=== PATIENT | male | born 1995 | race Caucasian/White ===

== ENCOUNTER → 2019-10-11 17:08 | Outpatient (CLI) | payer MEDICAID, SELFPAY | PROVIDERS: PCP Family Medicine; Visit Provider Nurse Practitioner | DX: Z03.818 Encounter for observation for suspected exposure to other biological agents ruled out (principal) | CPT/HCPCS: U0003 ==

== ENCOUNTER 2019-10-24 14:08 | Emergency (ER) | payer MEDICAID, SELFPAY ==
[2019-10-24] VITALS (8 sets, daily range): BP systolic 107–129; BP diastolic 63–87; PULSE 87–103; RESP 14–17; TEMP 36.8; O2SAT 92–100; BMI 28.8
--- NOTE | 2019-10-24 14:04 | ECG_ITS ---
APPROVED REPORT Exam: Resting ECG HR:101 bpm ECG Measurements Heart Rate 101 AXES ME 146 P 44 QRSd 96 QRS 24 QT 318 T 0 QTc 412 <Conclusion> Sinus tachycardia Minimal voltage criteria for LVH, may be normal variant Inferior infarct, age undetermined Abnormal ECG Electronically signed by : Kirt Serrano, 10/24/2019 17:03:47
--- NOTE | 2019-10-24 14:12 | XR_ITS ---
PROCEDURE: XR CHEST 2V Referring Doctor: Caleb Mensah Patient Age:24Y CLINICAL HISTORY: SOA dyspnea and the chest pain started 2 hours prior to arrival in ER. COMPARISON: GRECIA Angel from 09/15/2018 FINDINGS: PA and lateral chest performed the no prior chest films; only a previous left shoulder two thousand nineteen for comparison Lungs appear well expanded and clear but nothing definitely acute. The upper normal markings at the left infrahilar region of most likely reflecting slightly less than optimal inspiration a possible mild atelectasis but no convincing focal pneumonia. No pneumothorax but no pleural effusion. Heart oz and mediastinal structures appear satisfactory. Chest wall and T-spine unremarkable. No acute bony abnormalities. Normal pulmonary vascularity. The lungs are clear without infiltrates, suspicious nodules, or pleural effusions. IMPRESSION: No acute findings. Lungs clear with Nothing definitely acute Dictated by: Art Castro MD 10/24/2019 18:21 Art Castro MD in [place] 10/24/2019 18:21
--- NOTE | 2019-10-24 14:28 | HMH.EDGENADL ---
ED Disposition Clinical Impression: Atypical chest pain Disposition: Home, Self-Care Condition on Discharge: Good Instructions: DI for Atypical Chest Pain Additional Instructions: Additional instructions for CHEST PAIN: See your physician as soon as possible for further evaluation. Return immediately if worsening chest pain, vomiting, shortness of breath, fever, coughing of blood. Referrals: PCP,No [Non-Staff] - - Critical Care Critical Care Time: No Attestation: On 10/24/19, the high probability of a clinically significant, sudden or life threatening deterioration of the following system(s) required my full and direct attention, intervention and personal management. The time I documented below is in addition to time spent performing reported procedures but includes the following listed in this critical care notation. Medical Decision Making - Medical Records Medical records reviewed: Yes: I reviewed the patient's medical records. - Sumeet Inquiry Pt receiving controlled substance: No Vital Signs: 10/24/19 14:08 10/24/19 15:30 10/24/19 16:10 Temperature 98.2 F Temperature Source Oral Pulse Rate [Right] 103 H 100 H 91 H Respiratory Rate 17 16 16 Blood Pressure [Right Arm] 129/75 129/75 119/63 Blood Pressure Mean [Right Arm] 93 93 81 Blood Pressure Source [Right Arm] Automatic Cuff Automatic Cuff Blood Pressure Position [Right Arm] Sitting Sitting 02 Sat by Pulse Oximetry 100 100 99 Oxygen Delivery Method Room Air Room Air 10/24/19 16:46 10/24/19 17:03 10/24/19 17:30 Temperature Temperature Source Pulse Rate [Right] 87 91 H 98 H Respiratory Rate 16 16 14 Blood Pressure [Right Arm] 117/75 112/69 113/87 Blood Pressure Mean [Right Arm] 89 83 95 Blood Pressure Source [Right Arm] Automatic Cuff Blood Pressure Position [Right Arm] Sitting 02 Sat by Pulse Oximetry 100 98 92 L Oxygen Delivery Method Room Air Room Air Venturi Mask 10/24/19 18:07 Temperature Temperature Source Pulse Rate [Right] 87 Respiratory Rate 16 Blood Pressure [Right Arm] 107/63 L Blood Pressure Mean [Right Arm] 77 Blood Pressure Source [Right Arm] Automatic Cuff Blood Pressure Position [Right Arm] Sitting 02 Sat by Pulse Oximetry 98 Oxygen Delivery Method Room Air - Lab Data Lab results reviewed: Yes: I reviewed the patient's lab results. Lab Results 10/24/19 14:17: WBC 9.1, RBC 4.50 L, Hgb 14.3, Hct 39.8 L, MCV 88.3, MCH 31.8 H, MCHC 36.0 H, RDW 12.7, Plt Count 374, MPV 6.7 L, Neut % (Auto) 69.3, Lymph % (Auto) 24.0, [place] % (Auto) 4.7, Eos % (Auto) 1.3, Baso % (Auto) 0.8, Neut # (Auto) 6.3, Lymph # (Auto) 2.2, [place] # (Auto) 0.4, Eos # (Auto) 0.1, Baso # (Auto) 0.1 10/24/19 14:17: Sodium 134 L, Potassium 4.3, Chloride 96 L, Carbon Dioxide 30, Anion Gap 12.3, BUN 13, Creatinine 0.70, Estimated Creat Clear 239, Estimated GFR 141, Est GFR ( Amer) 171, Glucose 100, Calcium 9.7, Total Bilirubin 0.4, AST 48, ALT 63, Alkaline Phosphatase 115, Troponin I < 0.01, Total Protein 7.9, Albumin 4.6, Globulin 3.3 H, Albumin/Globulin Ratio 1.4 10/24/19 14:17: D-Dimer 0.35 10/24/19 17:40: Troponin I < 0.01 Result diagrams: 10/24/19 14:17 10/24/19 14:17 Orders (Tests/Meds): ED MEDICATIONS Discontinued Medications Generic Name Dose Route Start Last Admin Trade Name Freq PRN Reason Stop Dose Admin Ketorolac Tromethamine 30 mg 10/24/19 14:58 10/24/19 15:55 Toradol 30mg/Ml Vial IV 10/24/19 14:59 30 mg ONCE ONE Administration ORDERS Category Date Time Status Troponin I Q3H Lab 10/24/19 20:15 Ordered - ECG Data Tracing #1 EKG interpreted by Caleb Mensah MD: Rhythm: sinus Rate: Rock: normal Ectopy: none Conduction: normal ST Segment Changes: none T Wave Changes: none Q Waves: Inferior No evidence of acute ischemia or injury Minimal voltage criteria for LVH No prior EKGs available for comparison. - Reevaluation(s) Time: 18:28 Reevaluation #1: Patient s
[2019-10-24 14:32] LABS: Basophils # 0.1 K/mm3 (0-0.2); Basophils % 0.8 % (0.1-2.0); Eosinophils # 0.1 K/mm3 (0.0-0.4); Eosinophils % 1.3 % (0.1-12.0); Hematocrit 39.8 % (42.0-52.0); Hemoglobin 14.3 g/dL (14.1-18.0); Lymphocytes # 2.2 K/mm3 (0.7-4.5); Mean Corpuscular Hemoglobin 31.8 pg (27.0-31.2); Mean Corpuscular Volume 88.3 fl (80-94); Mean Platelet Volume 6.7 fl (7.4-10.4); Monocytes # 0.4 K/mm3 (0.1-1.0); Monocytes % 4.7 % (1.7-9.3); Neutrophils # 6.3 K/mm3 (1.8-7.8); Neutrophils % 69.3 % (37.0-80.0); Platelet Count 374 K/mm3 (142-424); Red Cell Distribution Width 12.7 % (11.5-17.5); White Blood Count 9.1 K/mm3 (4.8-10.8)
[2019-10-24 14:40] LABS: Alanine Aminotransferase 63 U/L (12-78); Albumin Level 4.6 g/dl (3.5-5.0); Albumin/Globulin Ratio 1.4 (1.1-1.8); Alkaline Phosphatase 115 U/L (38-126); Anion Gap 12.3 mEq/L (5-15); Aspartate Amino Transferase 48 U/L (17-59); Bilirubin,Total 0.4 mg/dl (0.2-1.3); Blood Urea Nitrogen 13 mg/dl (9-20); Calcium 9.7 mg/dl (8.4-10.2); Carbon Dioxide 30 mmol/L (22.0-30.0); Chloride 96 mmol/L (98-107); Creatinine Clearance Estimated 239 mL/min (50-200); Estimated Glomerular Filt Rate 141 ml/min (>60); GFR (African American) 171 ML/MIN (>60); Globulin 3.3 g/dL (1.3-3.2); Glucose 100 mg/dl (74-100); Potassium 4.3 mmoL/L (3.5-5.1); Sodium 134 mmol/L (136-145); Total Protein,Serum 7.9 g/dl (6.3-8.2)
[2019-10-24 14:52] LABS: Troponin I < 0.01 ng/ml (0.00-0.034)
[2019-10-24 15:14] LABS: D-Dimer 0.35 ug/mL (0.15-8.0)
[2019-10-24 18:08] LABS: Troponin I < 0.01 ng/ml (0.00-0.034)
== END 2019-10-24 18:50 | disposition home or self-care (01) ==
PROVIDERS: Emergency Provider Emergency Medicine; PCP Family Medicine
DX: R07.89 Other chest pain (principal); R42 Dizziness and giddiness; I10 Essential (primary) hypertension; F41.9 Anxiety disorder, unspecified; F90.9 Attention-deficit hyperactivity disorder, unspecified type
CPT/HCPCS: 71046; 80053; 84484; 85025; 85378; 93005; 99284

== ENCOUNTER 2019-10-25 13:33 | Emergency (ER) | payer MEDICAID, SELFPAY ==
[2019-10-25 13:41] VITALS: BP 121/73; PULSE 104; RESP 20; TEMP 37.1; O2SAT 96; BMI 28.8
--- NOTE | 2019-10-25 14:12 | HMH.EDUTC ---
[facility] [place] Clinical Impression: Acid reflux Qualifiers: Esophagitis presence: esophagitis presence not specified Qualified Code(s): K21.9 - Gastro-esophageal reflux disease without esophagitis Abdominal pain Qualifiers: Abdominal location: epigastric Qualified Code(s): R10.13 - Epigastric pain Disposition: Home, Self-Care Condition on Discharge: Good Instructions: GERD Diet Additional Instructions: Drink plenty of fluids. Take tylenol for pain or fever. Take the medications as directed. I put in a referral to a GI specialist (Dr. Best). Please call his office and make yourself an appointment to further evaluation. Follow up with your regular doctor. GO TO THE ER FOR ANY WORSENING SYMPTOMS If your diarrhea continues, please return a sample back to the lab with the order by tomorrow. Prescriptions: Sucralfate [Carafate 1gm Tab] 1 gm PO ACHS 30 Days #120 tab Transmission Status: Received by [facility] # Famotidine [Pepcid] 20 mg PO BID 30 Days #60 tab Transmission Status: Received by [facility] # Referrals: Kirt Bell MD [Primary Care Provider] - Krishan Best MD [Staff Physician] - Forms: Work/School Release Time of Disposition: 14:33 Medical Decision Making - Medical Records Medical records reviewed: No: I reviewed the patient's medical records. - Sumeet Inquiry Pt receiving controlled substance: No Vital Signs: 10/25/19 13:41 10/25/19 14:35 Temperature 98.7 F 98.7 F Temperature Source Oral Pulse Rate 104 H Pulse Rate [Right Brachial] 104 H Respiratory Rate 20 20 Blood Pressure 121/73 Blood Pressure [Left Arm] 121/73 Blood Pressure Mean [Left Arm] 89 Blood Pressure Source [Left Arm] Automatic Cuff Blood Pressure Position [Left Arm] Sitting 02 Sat by Pulse Oximetry 96 Oxygen Delivery Method Room Air Orders (Tests/Meds): ORDERS Category Date Time Status Covid-19 Nasal PCR Sendout Garry Stat Lab 10/25/19 14:35 Received [facility] [place] - General Stated complaint: stomach pain Time Seen by Provider: 10/25/19 13:45 Mode of Arrival: Ambulatory Source of Information: Patient Limitations: No Limitations Description of Symptoms (Recalled from Triage Doc. by RN): PATIENT C/O STOMACH ACHE, VOMITING, AND DIARRHEA X 1 WEEK. HE IS CONCERNED HE MAY HAVE ULCERS HEENT Symptoms (Recalled from RN notes): No Resp Symptoms (Recalled from RN notes): No Skin Symptoms (Recalled from RN notes): No MS Symptoms (Recalled from RN notes): No Functional Status (Recalled from RN notes): WNL - History of Present Illness Provider Complaint: He c/o frequent heart burn, epigastric pain and burning, nausea and diarrhea for the past 1 week. He denies any known exposure to COVID-19. - Related Data Home Medications Medication Instructions Recorded Confirmed Buspirone HCl 15 mg PO BID 08/19/17 01/09/19 OXcarbazepine [Oxcarbazepine] 600 mg PO DAILY 08/19/17 01/09/19 lisinopriL [Lisinopril 40mg Tablet] 40 mg PO DAILY 08/19/17 01/09/19 dextroamphetamine-amphetamine 5 mg 5 mg PO DAILY 01/09/19 01/09/19 tablet Previous Rx's Medication Instructions Recorded Azithromycin [Z-Kirit 250mg Tab*] 250 mg PO UD DOSE PK #6 tab 03/04/19 Fluticasone Propionate [Flonase 1 - 2 spr NS DAILY #1 bottle 03/04/19 50mcg nasal spray 16gm] methylPREDNISolone [Medrol 4mg 4 mg PO DIRECTED #21 tab 03/04/19 tab] Famotidine [Pepcid] 20 mg PO BID 30 Days #60 tab 10/25/19 Sucralfate [Carafate 1gm Tab] 1 gm PO ACHS 30 Days #120 tab 10/25/19 Allergies Allergy/AdvReac Type Severity Reaction Status Date / Time No Known Allergies Allergy Verified 01/09/19 11:45 - Worker's Comp Is this a Worker's Comp case?: No H History - Hepatitis A Screen Drug use history?: No High risk sexual behaviors?: No History of sexually transmitted infection?: No Currently employed?: No Childcare worker?: No Do you have indoor plumbing?: Yes Do you
[2019-10-25 14:35] VITALS: BP 121/73; PULSE 104; RESP 20; TEMP 37.1; O2SAT 96
[2019-10-27 14:57] LABS: Covid-19 Nasal PCR Sendout Lex NOT DETECTED
== END 2019-10-25 14:36 | disposition home or self-care (01) ==
PROVIDERS: Emergency Provider Nurse Practitioner Family; PCP Family Medicine
DX: K21.9 Gastro-esophageal reflux disease without esophagitis (principal); R10.13 Epigastric pain; Z20.828 Contact with and (suspected) exposure to other viral communicable diseases; I10 Essential (primary) hypertension; Z79.899 Other long term (current) drug therapy
CPT/HCPCS: 99201; U0004

== ENCOUNTER 2020-01-18 09:31 | Emergency (ER) | payer MEDICAID, SELFPAY ==
--- NOTE | 2020-01-18 09:38 | HMH.EDUTC ---
[facility] [place] Clinical Impression: Gastroenteritis Abdominal pain Qualifiers: Abdominal location: unspecified location Qualified Code(s): R10.9 - Unspecified abdominal pain Disposition: Home, Self-Care Condition on Discharge: Good Instructions: Viral Gastroenteritis, DI for Viral Gastroenteritis -- Adult Additional Instructions: Drink plenty of fluids. Take tylenol or ibuprofen for fever. Take the medications as directed. Follow up with your regular doctor. GO TO THE ER FOR ANY WORSENING SYMPTOMS Prescriptions: Ondansetron [Zofran 4mg ODT] 4 mg PO Q8HP PRN #12 tab.rapdis PRN Reason: Nausea Transmission Status: Received by [employer] #[id number] Referrals: Kirt Bell MD [Primary Care Provider] - Forms: Work/School Release Time of Disposition: 09:53 Medical Decision Making - Medical Records Medical records reviewed: No: I reviewed the patient's medical records. - Sumeet Inquiry Pt receiving controlled substance: No Vital Signs: 01/18/20 09:46 01/18/20 09:59 Temperature 98 F 98 F Temperature Source Oral Oral Pulse Rate 100 H Pulse Rate [Radial] 100 H Respiratory Rate 14 14 Blood Pressure 152/78 H Blood Pressure [Right Arm] 152/78 H Blood Pressure Mean [Right Arm] 102 Blood Pressure Source Automatic Cuff Blood Pressure Source [Right Arm] Automatic Cuff Blood Pressure Position Sitting Blood Pressure Position [Right Arm] Sitting 02 Sat by Pulse Oximetry 100 Oxygen Delivery Method Room Air Room Air [facility] [place] - General Stated complaint: stomach pains Time Seen by Provider: 01/18/20 09:38 - History of Present Illness Provider Complaint: He reports that he has been having periods of abdominal cramping for the past day. He has also had nausea. He has not vomited. He has had a normal appetite. He denies constipation or diarrhea. He has had normal bowel movements. His last b.m. was at around 0500 this am. - Related Data Home Medications Medication Instructions Recorded Confirmed Buspirone HCl 15 mg PO BID 08/19/17 01/09/19 OXcarbazepine [Oxcarbazepine] 600 mg PO DAILY 08/19/17 01/09/19 lisinopriL [Lisinopril 40mg Tablet] 40 mg PO DAILY 08/19/17 01/09/19 dextroamphetamine-amphetamine 5 mg 5 mg PO DAILY 01/09/19 01/09/19 tablet Previous Rx's Medication Instructions Recorded Azithromycin [Z-Kirit 250mg Tab*] 250 mg PO UD DOSE PK #6 tab 03/04/19 Fluticasone Propionate [Flonase 1 - 2 spr NS DAILY #1 bottle 03/04/19 50mcg nasal spray 16gm] methylPREDNISolone [Medrol 4mg 4 mg PO DIRECTED #21 tab 03/04/19 tab] Famotidine [Pepcid] 20 mg PO BID 30 Days #60 tab 10/25/19 Sucralfate [Carafate 1gm Tab] 1 gm PO ACHS 30 Days #120 tab 10/25/19 Ondansetron [Zofran 4mg ODT] 4 mg PO Q8HP PRN #12 tab.rapdis 01/18/20 Allergies Allergy/AdvReac Type Severity Reaction Status Date / Time No Known Allergies Allergy Verified 01/09/19 11:45 [facility] History - Hepatitis A Screen Attestation statement:: This patient has been screened for Hepatitis A risk factors. I have reviewed the patient's past medical history: Yes Medical History: Reports:: Hypertension Denies:: Diabetes Mellitus Type 1, Diabetes Mellitus Type 2 Other Medical History: Reports: Other (ADHD) Other Surgeries: Yes: Sinus Surgery Amputation: No Fractures: No Comment: nasal surgery and arm pit sweat glad surgery - Social History Smoking Status: Never smoker Alcohol Intake: never Occupational Status: other ROS Obtained: Yes All systems reviewed & no additional complaints - Constitutional Constitutional: Reports system reviewed and no additional complaints, except as docu - Eyes Eyes: Reports system reviewed and no additional complaints, except as docu - ENT Ears, Nose, Mouth, and Throat: Reports system reviewed and no additional complaints, except as docu - Cardiovascular Cardiovascular: Reports system reviewed and no additional complaints, except as docu
[2020-01-18 09:46] VITALS: BP 152/78; PULSE 100; RESP 14; TEMP 36.6; O2SAT 100; BMI 30.2
[2020-01-18 09:59] VITALS: BP 152/78; PULSE 100; RESP 14; TEMP 36.6; O2SAT 100
== END 2020-01-18 10:00 | disposition home or self-care (01) ==
PROVIDERS: Emergency Provider Nurse Practitioner Family; PCP Family Medicine
DX: K52.9 Noninfective gastroenteritis and colitis, unspecified (principal); I10 Essential (primary) hypertension; Z79.899 Other long term (current) drug therapy
CPT/HCPCS: 99201

== ENCOUNTER 2020-10-11 14:14 | Emergency (ER) | payer SELFPAY ==
[2020-10-11 14:50] VITALS: BP 145/91; PULSE 112; RESP 20; TEMP 36.9; O2SAT 98; BMI 31.4
--- NOTE | 2020-10-11 15:00 | HMH.EDUTC ---
[facility] [place] Impression: Poison sameera dermatitis Disposition: Home, Self-Care Condition on Discharge: Good Instructions: Poison Sameera, Poison [place], Poison [place], DI for Poison Sameera Allergy, Methylprednisolone Additional Instructions: Over the counter Calamine lotion may help to dry the rash Over the counter Benadryl may help with itching associated with rash Oatmeal bathes may help to dry the rash Start oral Steriods tomorrow 10/12/20 Return if needed Straight to ER if any life threatening symptoms Prescriptions: methylPREDNISolone [Medrol 4mg tab] 4 mg PO DIRECTED #21 tab Transmission Status: Received by [employer] #[id number] Referrals: Kirt Bell MD [Primary Care Provider] - As needed Time of Disposition: 15:23 Medical Decision Making - Sumeet Inquiry Pt receiving controlled substance: No Sumeet was queried for this patient: No Vital Signs: 10/11/20 14:50 Temperature 98.4 F Temperature Source Oral Pulse Rate [Left] 112 H Respiratory Rate 20 Blood Pressure [Right Arm] 145/91 H Blood Pressure Mean [Right Arm] 109 02 Sat by Pulse Oximetry 98 Orders (Tests/Meds): ED MEDICATIONS Discontinued Medications Generic Name Dose Route Start Last Admin Trade Name Freq PRN Reason Stop Dose Admin Methylprednisolone Sodium Succinate 125 mg 10/11/20 15:02 10/11/20 15:22 Methylprednisolone Sod Succ 125mg Vial IM 10/11/20 15:03 125 mg ONCE ONE Administration Medical Decision Narrative: Patient states that he has taken Solu Medrol and Medrol dose pack in the past without reactions or complications [facility] [place] - General Stated complaint: poison sameera Time Seen by Provider: 10/11/20 15:00 Mode of Arrival: Ambulatory Source of Information: Patient Limitations: No Limitations Description of Symptoms (Recalled from Triage Doc. by RN): pt c/o of poison sameera on both legs and feet x1 week. HEENT Symptoms (Recalled from RN notes): No Resp Symptoms (Recalled from RN notes): No Skin Symptoms (Recalled from RN notes): Yes (poison sameera rash on bilateral legs/feet) MS Symptoms (Recalled from RN notes): No Functional Status (Recalled from RN notes): na - History of Present Illness Provider Complaint: Patient states that he has been trying to take care of poison sameera on bilateral lower legs and feet for about week State that now rash is spreading on his left arm and he was concerned it would get to his face States that when he gets it he has to come in and get steriod shot - Related Data Home Medications Medication Instructions Recorded Confirmed Buspirone HCl 15 mg PO BID 08/19/17 01/09/19 OXcarbazepine [Oxcarbazepine] 600 mg PO DAILY 08/19/17 01/09/19 lisinopriL [Lisinopril 40mg Tablet] 40 mg PO DAILY 08/19/17 01/09/19 dextroamphetamine-amphetamine 5 mg 5 mg PO DAILY 01/09/19 01/09/19 tablet Previous Rx's Medication Instructions Recorded Azithromycin [Z-Kirit 250mg Tab*] 250 mg PO UD DOSE PK #6 tab 03/04/19 Fluticasone Propionate [Flonase 1 - 2 spr NS DAILY #1 bottle 03/04/19 50mcg nasal spray 16gm] methylPREDNISolone [Medrol 4mg 4 mg PO DIRECTED #21 tab 03/04/19 tab] Famotidine [Pepcid] 20 mg PO BID 30 Days #60 tab 10/25/19 Sucralfate [Carafate 1gm Tab] 1 gm PO ACHS 30 Days #120 tab 10/25/19 Ondansetron [Zofran 4mg ODT] 4 mg PO Q8HP PRN #12 tab.rapdis 01/18/20 methylPREDNISolone [Medrol 4mg 4 mg PO DIRECTED #21 tab 10/11/20 tab] Allergies Allergy/AdvReac Type Severity Reaction Status Date / Time No Known Allergies Allergy Verified 01/09/19 11:45 - Worker's Comp Is this a Worker's Comp case?: No [facility] History - Hepatitis A Screen Drug use history?: No High risk sexual behaviors?: No History of sexually transmitted infection?: No Currently employed?: No Childcare worker?: No Do you have indoor plumbing?: Yes Do you have electricity?: Yes Attestation statement:: This patient has been screened for Hepatitis A risk factors.
[2020-10-11 15:33] VITALS: BP 139/86; PULSE 103; RESP 16; TEMP 36.6
== END 2020-10-11 15:33 | disposition home or self-care (01) ==
PROVIDERS: Emergency Provider Nurse Practitioner; PCP Family Medicine
DX: L23.7 Allergic contact dermatitis due to plants, except food (principal); I10 Essential (primary) hypertension
CPT/HCPCS: 96372; 99202; G0463

== ENCOUNTER 2020-10-12 06:07 | Emergency (ER) | payer SELFPAY ==
[2020-10-12 06:21] VITALS: BP 00/00; PULSE 0; RESP 0; TEMP -17.7; TEMP 0
== END 2020-10-12 06:21 | disposition left against medical advice (07) ==
PROVIDERS: Emergency Provider Emergency Medicine; PCP Family Medicine
DX: Z53.21 Procedure and treatment not carried out due to patient leaving prior to being seen by health care provider (principal)
CPT/HCPCS: 99211

== ENCOUNTER 2020-11-07 09:00 | Emergency (ER) | payer SELFPAY ==
[2020-11-07 09:12] VITALS: BP 145/97; PULSE 95; RESP 14; TEMP 36.6; O2SAT 100; BMI 32.1
--- NOTE | 2020-11-07 09:44 | HMH.EDUTC ---
[facility] [place] Clinical Impression: Viral syndrome, Gastroenteritis Disposition: Home, Self-Care Condition on Discharge: Good Instructions: Viral Gastroenteritis, DI for Viral Gastroenteritis -- Adult, DI for COVID-19 (Suspected or Confirmed ), Preventing the Spread of Coronavirus Discharge Instructions Additional Instructions: Drink plenty of fluids. Take tylenol or ibuprofen for pain or fever. Take the medications as directed. The zofran (ondesetron) is for nausea/vomiting. Follow up with your regular doctor. GO TO THE ER FOR ANY WORSENING SYMPTOMS Quarantine until you know the results of your covid-19 test. If it is positive, the health department should call you and give you further instructions about your length of Quarantine and other things. Notify your school or workplace of your results and follow their instructions regarding return to work/school. Prescriptions: Ondansetron [Zofran 4mg ODT] 4 mg PO DAILYP PRN #12 tab PRN Reason: Nausea Transmission Status: Received by [employer] #[id number] Referrals: Kirt Bell MD [Primary Care Provider] - Forms: Work/School Release Time of Disposition: 09:49 Medical Decision Making - Medical Records Medical records reviewed: No: I reviewed the patient's medical records. - Sumeet Inquiry Pt receiving controlled substance: No Vital Signs: 11/07/20 09:12 11/07/20 09:55 Temperature 98 F 98 F Temperature Source Oral Pulse Rate 95 H Pulse Rate [Left] 95 H Respiratory Rate 14 16 Blood Pressure 145/97 H Blood Pressure [Right Arm] 145/97 H Blood Pressure Mean [Right Arm] 113 02 Sat by Pulse Oximetry 100 - Lab Data Lab results reviewed: Yes: I reviewed the patient's lab results. Lab Results 11/07/20 09:27: Strep Scn Rapid [facility] Negative Orders (Tests/Meds): ORDERS Category Date Time Status Covid-19 Nasal PCR ([facility]) Routine Lab 11/07/20 09:40 Received Strep Screen Confirmation Stat Micro 11/07/20 09:27 Received [facility] [place] HPI - General Stated complaint: vomiting, stomach pains Time Seen by Provider: 11/07/20 09:15 Mode of Arrival: Ambulatory Source of Information: Patient Limitations: No Limitations Description of Symptoms (Recalled from Triage Doc. by RN): pt states he left work this am because he has been having N/V/D HEENT Symptoms (Recalled from RN notes): No Resp Symptoms (Recalled from RN notes): No Skin Symptoms (Recalled from RN notes): No MS Symptoms (Recalled from RN notes): No Functional Status (Recalled from RN notes): na - History of Present Illness Provider Complaint: He states that since around 4 hours ago, he has had nausea and vomiting and diarrhea. He has vomited X4, diarrhea X2. He denies any abdominal pain, but he has had some abdominal cramping with the diarrhea. He denies any blood in his stool or vomit. He denies any fever/chills. He denies a cough or congestion. He thinks that he has a stomach virus. He has not been vaccinated against covid-19. - Related Data Home Medications Medication Instructions Recorded Confirmed Buspirone HCl 15 mg PO BID 08/19/17 01/09/19 OXcarbazepine [Oxcarbazepine] 600 mg PO DAILY 08/19/17 01/09/19 lisinopriL [Lisinopril 40mg Tablet] 40 mg PO DAILY 08/19/17 01/09/19 dextroamphetamine-amphetamine 5 mg 5 mg PO DAILY 01/09/19 01/09/19 tablet Previous Rx's Medication Instructions Recorded Azithromycin [Z-Kirit 250mg Tab*] 250 mg PO UD DOSE PK #6 tab 03/04/19 Fluticasone Propionate [Flonase 1 - 2 spr NS DAILY #1 bottle 03/04/19 50mcg nasal spray 16gm] methylPREDNISolone [Medrol 4mg 4 mg PO DIRECTED #21 tab 03/04/19 tab] Famotidine [Pepcid] 20 mg PO BID 30 Days #60 tab 10/25/19 Sucralfate [Carafate 1gm Tab] 1 gm PO ACHS 30 Days #120 tab 10/25/19 Ondansetron [Zofran 4mg ODT] 4 mg PO Q8HP PRN #12 tab.rapdis 01/18/20 methylPREDNISolone [Medrol 4mg 4 mg PO DIRECTED #21 tab 10/11/20 tab] Ondansetron [Zofran 4mg ODT
[2020-11-07 09:52] LABS: UTC Strep Screen (Rapid) Negative (Negative)
[2020-11-07 09:55] VITALS: BP 145/97; PULSE 95; RESP 16; TEMP 36.6
== END 2020-11-07 09:56 | disposition home or self-care (01) ==
PROVIDERS: Emergency Provider Nurse Practitioner Family; PCP Family Medicine
DX: K52.9 Noninfective gastroenteritis and colitis, unspecified (principal); B34.9 Viral infection, unspecified; Z20.822 Contact with and (suspected) exposure to COVID-19
CPT/HCPCS: 87880; 99203; G0463; U0003

== ENCOUNTER → 2021-02-12 09:48 | Outpatient (CLI) | payer OTHER, SELFPAY | PROVIDERS: PCP Family Medicine; Visit Provider Nurse Practitioner | DX: U07.1 COVID-19 (principal) | CPT/HCPCS: C9803; U0003; U0005 ==

== ENCOUNTER 2021-03-27 17:24 | Emergency (ER) | payer BC, SELFPAY ==
[2021-03-27 18:00] VITALS: BP 140/91; PULSE 72; RESP 20; TEMP 36.8; O2SAT 98; BMI 30.5
--- NOTE | 2021-03-27 18:16 | HMH.EDUTC ---
[facility] [place] Clinical Impression: Viral syndrome Abdominal pain Qualifiers: Abdominal location: unspecified location Qualified Code(s): R10.9 - Unspecified abdominal pain Disposition: Home, Self-Care Condition on Discharge: Good Instructions: DI for Abdominal Pain-Adult Additional Instructions: Drink plenty of fluids. Take tylenol or ibuprofen for pain or fever. Take the medications as directed. Follow up with your regular doctor. GO TO THE ER FOR ANY WORSENING SYMPTOMS Prescriptions: Ondansetron [Zofran 4mg ODT] 4 mg PO Q8HP PRN #20 tab PRN Reason: Nausea Transmission Status: Pending to [email or web address] # Dicyclomine HCl [Bentyl 10mg capsule] 10 mg PO TIDP PRN #20 cap PRN Reason: Cramping Transmission Status: Pending to [email or web address] # Referrals: Kirt Bell MD [Primary Care Provider] - Forms: Work/School Release Time of Disposition: 19:07 Medical Decision Making - Medical Records Medical records reviewed: No: I reviewed the patient's medical records. - Sumeet Inquiry Pt receiving controlled substance: No Vital Signs: 03/27/21 18:00 03/27/21 18:56 Temperature 98.3 F 98.3 F Temperature Source Oral Pulse Rate 72 Pulse Rate [Left Brachial] 72 Respiratory Rate 20 20 Blood Pressure 140/91 H Blood Pressure [Left Arm] 140/91 H Blood Pressure Mean [Left Arm] 107 Blood Pressure Source [Left Arm] Automatic Cuff Blood Pressure Position [Left Arm] Sitting 02 Sat by Pulse Oximetry 98 Oxygen Delivery Method Room Air - Lab Data Lab Results 03/27/21 18:20: Urine Color Yellow, Urine Appearance Clear, Urine pH 6.0, Ur Specific [place] 1.030, Urine Protein Negative, Urine Glucose (UA) Negative, Urine Ketones Negative, Urine Blood Negative, Urine Nitrate Negative, Urine Bilirubin Negative, Urine Urobilinogen 0.2, Ur Leukocyte Esterase Negative Medical Decision Narrative: he refused transfer to the ER. He is aware of the risks of appendicitis. He states he will return if his symptoms worsen or continue. [facility] [place] - General Stated complaint: STOMACH ISSUES Time Seen by Provider: 03/27/21 18:17 Mode of Arrival: Ambulatory Source of Information: Patient Limitations: No Limitations Description of Symptoms (Recalled from Triage Doc. by RN): PATIENT C/O SHARP/SQUEEZING PAIN TO MID-ABDOMEN X 2 DAYS. STATES PAIN DOES NOT RADIATE ANYWHERE. DENIES VOMITING. HEENT Symptoms (Recalled from RN notes): No Resp Symptoms (Recalled from RN notes): No Skin Symptoms (Recalled from RN notes): No MS Symptoms (Recalled from RN notes): No Functional Status (Recalled from RN notes): WNL - History of Present Illness Provider Complaint: He states that he has been epigastric abdominal pain since yesterday. He has had diarrhea and nausea, but no vomiting. He denies any fever or chills. He denies any known covid exposure. - Related Data Home Medications Medication Instructions Recorded Confirmed Buspirone HCl 15 mg PO BID 08/19/17 12/26/20 OXcarbazepine [Oxcarbazepine] 600 mg PO DAILY 08/19/17 12/26/20 lisinopriL [Lisinopril 40mg Tablet] 40 mg PO DAILY 08/19/17 12/26/20 dextroamphetamine-amphetamine 5 mg 5 mg PO DAILY 01/09/19 12/26/20 tablet Previous Rx's Medication Instructions Recorded Fluticasone Propionate [Flonase 1 - 2 spr NS DAILY #1 bottle 03/04/19 50mcg nasal spray 16gm] Famotidine [Pepcid] 20 mg PO BID 30 Days #60 tab 10/25/19 Sucralfate [Carafate 1gm Tab] 1 gm PO ACHS 30 Days #120 tab 10/25/19 Dicyclomine HCl [Bentyl 10mg 10 mg PO TIDP PRN #20 cap 03/27/21 capsule] Ondansetron [Zofran 4mg ODT] 4 mg PO Q8HP PRN #20 tab 03/27/21 Allergies Allergy/AdvReac Type Severity Reaction Status Date / Time No Known Allergies Allergy Verified 12/26/20 17:57 - Worker's Comp Is this a Worker's Comp case?: No [facility] History - Hepatitis A Screen Drug use history?: No High risk sexual behaviors?: No History of s
[2021-03-27 18:43] LABS: Apearance,Urine Clear (Clear); Bilirubin,Urine Negative (Negative); Blood, Urine Negative (Negative); Color,Urine Yellow (Yellow); Glucose,Urine (UA) Negative (Negative); Ketones,Urine Negative (Negative); Protein,Urine Negative (Negative); UTC Leukocyte Esterase,Urine Negative (Negative); UTC Nitrate,Urine Negative (Negative); Urobilinogen,Urine 0.2 EU/dl (0.2)
[2021-03-27 18:56] VITALS: BP 140/91; PULSE 72; RESP 20; TEMP 36.8; O2SAT 98
== END 2021-03-27 19:12 | disposition home or self-care (01) ==
PROVIDERS: Emergency Provider Nurse Practitioner Family; PCP Family Medicine
DX: B34.9 Viral infection, unspecified (principal); R10.33 Periumbilical pain; I10 Essential (primary) hypertension; F41.9 Anxiety disorder, unspecified
CPT/HCPCS: 81003; 99202; G0463

== ENCOUNTER 2021-04-10 18:35 | Emergency (ER) | payer BC, SELFPAY ==
--- NOTE | 2021-04-10 19:24 | HMH.EDUTC ---
[facility] – [place] Disposition Clinical Impression: Influenza B Disposition: Home, Self-Care Condition on Discharge: Good Instructions: Influenza, DI for Influenza -- Adult, Oseltamivir Additional Instructions: Drink plenty of fluids. Take tylenol or ibuprofen for pain or fever. Take the medications as directed. Follow up with your regular doctor. GO TO THE ER FOR ANY WORSENING SYMPTOMS Quarantine until you know the results of your covid-19 test. Notify your school or workplace of your results and follow their instructions regarding return to work/school. Prescriptions: Brompheniramine/Pseudoephed/Dm [Bromfed Dm Cough Syrup] 5 ml PO Q6HP PRN #240 ml PRN Reason: Cough Transmission Status: Pending to [employer] # Ondansetron [Zofran 4mg ODT] 4 mg PO Q8HP PRN #20 tab PRN Reason: Nausea Transmission Status: Pending to [facility] # Oseltamivir Phosphate [Tamiflu 75mg Capsule] 75 mg PO BID #10 cap Transmission Status: Pending to [employer] # Azithromycin [Z-Kirit 250mg Tab*] 250 mg PO UD DOSE PK #6 tab Transmission Status: Pending to [employer] # Referrals: Kirt Bell MD [Primary Care Provider] - Forms: Work/School Release Time of Disposition: 19:45 Medical Decision Making - Medical Records Medical records reviewed: No: I reviewed the patient's medical records. - Sumeet Inquiry Pt receiving controlled substance: No - Lab Data Lab results reviewed: Yes: I reviewed the patient's lab results. Lab Results 04/10/21 19:22: Group A Strep Rapid Negative Orders (Tests/Meds): ORDERS Category Date Time Status Covid-19 Nasal PCR ([facility]) Routine Lab 04/10/21 19:27 Received Strep Screen Confirmation Stat Micro 04/10/21 19:22 Received [facility] [place] HPI - General Stated complaint: sore throat, cough, Time Seen by Provider: 04/10/21 19:24 - History of Present Illness Provider Complaint: He states that for the past 1 day he has felt bad. His symptoms worsened today. He is having sore throat, cough, chest congestion, fever, chills, and body aches. He has been vaccinated against covid-19. - Related Data Home Medications Medication Instructions Recorded Confirmed Buspirone HCl 15 mg PO BID 08/19/17 12/26/20 OXcarbazepine [Oxcarbazepine] 600 mg PO DAILY 08/19/17 12/26/20 lisinopriL [Lisinopril 40mg Tablet] 40 mg PO DAILY 08/19/17 12/26/20 dextroamphetamine-amphetamine 5 mg 5 mg PO DAILY 01/09/19 12/26/20 tablet Previous Rx's Medication Instructions Recorded Fluticasone Propionate [Flonase 1 - 2 spr NS DAILY #1 bottle 03/04/19 50mcg nasal spray 16gm] Famotidine [Pepcid] 20 mg PO BID 30 Days #60 tab 10/25/19 Sucralfate [Carafate 1gm Tab] 1 gm PO ACHS 30 Days #120 tab 10/25/19 Dicyclomine HCl [Bentyl 10mg 10 mg PO TIDP PRN #20 cap 03/27/21 capsule] Ondansetron [Zofran 4mg ODT] 4 mg PO Q8HP PRN #20 tab 03/27/21 Azithromycin [Z-Kirit 250mg Tab*] 250 mg PO UD DOSE PK #6 tab 04/10/21 Brompheniramine/Pseudoephed/Dm 5 ml PO Q6HP PRN #240 ml 04/10/21 [Bromfed Dm Cough Syrup] Ondansetron [Zofran 4mg ODT] 4 mg PO Q8HP PRN #20 tab 04/10/21 Oseltamivir Phosphate [Tamiflu 75 mg PO BID #10 cap 04/10/21 75mg Capsule] Allergies Allergy/AdvReac Type Severity Reaction Status Date / Time No Known Allergies Allergy Verified 12/26/20 17:57 [facility] History - Hepatitis A Screen Attestation statement:: This patient has been screened for Hepatitis A risk factors. I have reviewed the patient's past medical history: Yes Medical History: Reports:: Anxiety, Hypertension Denies:: Diabetes Mellitus Type 1, Diabetes Mellitus Type 2 Other Medical History: Reports: Other Other Surgeries: Yes: Sinus Surgery Amputation: No Fractures: No Comment: nasal surgery and arm pit sweat glad surgery - Social History Smoking Status: Never smoker Alcohol Intake: never Occupational Status: other - Psychiatric History Ps
[2021-04-10 19:38] LABS: Strep Scrn Group A (Rapid) Negative (Negative)
[2021-04-10 19:39] VITALS: BP 137/78; PULSE 107; RESP 19; TEMP 37.3; O2SAT 97; BMI 31.0
[2021-04-10 19:42] LABS: UTC Influenza A Antigen Negative (Negative); UTC Influenza B Antigen Positive (Negative)
[2021-04-10 20:04] VITALS: BP 137/78; PULSE 107; RESP 19; TEMP 37.3
== END 2021-04-10 20:06 | disposition home or self-care (01) ==
PROVIDERS: Emergency Provider Nurse Practitioner Family; PCP Family Medicine
DX: J10.1 Influenza due to other identified influenza virus with other respiratory manifestations (principal); F41.9 Anxiety disorder, unspecified
CPT/HCPCS: 87430; 87804; 99203; C9803; G0463; U0003; U0005

== ENCOUNTER 2021-04-16 21:30 | Emergency (ER) | payer BC, SELFPAY ==
[2021-04-16 21:31] VITALS: BP 155/94; PULSE 108; RESP 16; TEMP 37.2; O2SAT 98; BMI 30.8
--- NOTE | 2021-04-16 21:41 | ECG_ITS ---
APPROVED REPORT Exam: Resting ECG HR:103 bpm ECG Measurements Heart Rate 103 AXES CO 155 P 61 QRSd 89 QRS 34 QT 313 T 5 QTc 373 Conclusion SINUS TACHYCARDIA NONSPECIFIC T-WAVE ABNORMALITY ABNORMAL RHYTHM ECG UNCONFIRMED REPORT Electronically signed by : Kirt Serrano MD 04/18/2021 21:04:55
--- NOTE | 2021-04-16 21:45 | XR_ITS ---
PROCEDURE INFORMATION: Exam: XR Chest Exam date and time: 04/16/2021 9:45 PM Age: 26 years old Clinical indication: Other: Dizziness; Patient HX: Patient became dizzy 2 hours ago while at work. TECHNIQUE: Imaging protocol: XR of the chest. Views: 2 views. COMPARISON: CR XR CHEST 2V 10/24/2019 2:14 PM FINDINGS: Lungs: Unremarkable. No consolidation. Pleural spaces: No pleural effusion. No pneumothorax. Heart/Mediastinum: Normal heart size. Bones/joints: Unremarkable. IMPRESSION: No acute findings.
--- NOTE | 2021-04-16 21:46 | CT_ITS ---
PROCEDURE INFORMATION: Exam: CT Head Without Contrast Exam date and time: 04/16/2021 9:46 PM Age: 26 years old Clinical indication: Dizziness; Patient HX: Patient became dizzy 2 hours ago while at work. TECHNIQUE: Imaging protocol: Computed tomography of the head without contrast. Radiation optimization: All CT scans at this facility use at least one of these dose optimization techniques: automated exposure control; mA and/or kV adjustment per patient size (includes targeted exams where dose is matched to clinical indication); or iterative reconstruction. COMPARISON: No relevant prior studies available. FINDINGS: Brain: No loss of garcia-white differentiation or evidence of acute ischemia. No mass effect or midline shift. No intracranial hemorrhage. Cerebral ventricles: Within expected limits for age and brain volume status. No ventricular outflow obstruction. Paranasal sinuses: Visualized sinuses are unremarkable. No fluid levels. Mastoid air cells: Visualized mastoid air cells are well aerated. Bones/joints: No depressed or calvarial fracture. Soft tissues: Unremarkable. IMPRESSION: No acute intracranial abnormality.
[2021-04-16 22:01] LABS: Basophils # 0.3 K/mm3 (0-0.2); Basophils % 2.6 % (0.1-2.0); Eosinophils # 0.3 K/mm3 (0.0-0.4); Eosinophils % 3.3 % (0.1-12.0); Hematocrit 47.6 % (42.0-52.0); Hemoglobin 15.7 g/dL (14.1-18.0); Lymphocytes # 2.5 K/mm3 (0.7-4.5); Lymphocytes % 24.6 % (10-50); Mean Corpuscular HGB Conc 32.9 g/dL (31.8-35.4); Mean Corpuscular Hemoglobin 28.6 pg (27.0-31.2); Mean Corpuscular Volume 86.9 fl (80-94); Mean Platelet Volume 7.1 fl (7.4-10.4); Monocytes # 0.6 K/mm3 (0.1-1.0); Monocytes % 5.5 % (1.7-9.3); Neutrophils # 6.5 K/mm3 (1.8-7.8); Platelet Count 424 K/mm3 (142-424); Red Blood Count 5.48 M/mm3 (4.60-6.20); White Blood Count 10.1 K/mm3 (4.8-10.8)
[2021-04-16 22:07] LABS: Alanine Aminotransferase 41 U/L (12-78); Albumin Level 4.4 g/dl (3.5-5.0); Albumin/Globulin Ratio 1.6 (1.1-1.8); Alkaline Phosphatase 84 U/L (38-126); Anion Gap 10.9 mEq/L (5-15); Aspartate Amino Transferase 35 U/L (17-59); Bilirubin,Total 0.6 mg/dl (0.2-1.3); Blood Urea Nitrogen 12 mg/dl (9-20); Calcium 9.1 mg/dl (8.4-10.2); Carbon Dioxide 26 mmol/L (22.0-30.0); Chloride 107 mmol/L (98-107); Creatinine Clearance Estimated 251 mL/min (50-200); Estimated Glomerular Filt Rate 139 ml/min (>60); GFR (African American) 168 ML/MIN (>60); Globulin 2.8 g/dL (1.3-3.2); Glucose 96 mg/dl (74-100); Potassium 3.9 mmoL/L (3.5-5.1); Sodium 140 mmol/L (136-145); Total Protein,Serum 7.2 g/dl (6.3-8.2)
[2021-04-16 22:08] LABS: Amphetamine/Metha Screen,Urine Positive ng/ml (<1000)
[2021-04-16 22:09] LABS: Barbiturates Screen,Urine Negative ng/ml (<200); Benzodiazepines Screen,Urine Negative ng/ml (<200)
[2021-04-16 22:10] LABS: Cannabinoid Screen,Urine Negative ng/ml (<50); Cocaine Screen,Urine Negative ng/ml (<300)
--- NOTE | 2021-04-16 22:10 | HMH.EDDIZZ ---
ED Disposition Clinical Impression: Vertigo Disposition: Home, Self-Care Condition on Discharge: Good Instructions: Vertigo Additional Instructions: use meds and call pcp in am Referrals: Kirt Bell MD [Primary Care Provider] - - Critical Care Critical Care Time: No Attestation: On 04/16/21, the high probability of a clinically significant, sudden or life threatening deterioration of the following system(s) required my full and direct attention, intervention and personal management. The time I documented below is in addition to time spent performing reported procedures but includes the following listed in this critical care notation. Medical Decision Making - Medical Records Medical records reviewed: Yes: I reviewed the patient's medical records. - Sumeet Inquiry Pt receiving controlled substance: No Vital Signs: 04/16/21 21:31 Temperature 98.9 F Temperature Source Oral Pulse Rate [Right] 108 H Respiratory Rate 16 Blood Pressure [Right Arm] 155/94 H Blood Pressure Mean [Right Arm] 114 02 Sat by Pulse Oximetry 98 - Lab Data Lab results reviewed: Yes: I reviewed the patient's lab results. Lab Results 04/16/21 21:30: WBC 10.1, RBC 5.48, Hgb 15.7, Hct 47.6, MCV 86.9, MCH 28.6, MCHC 32.9, RDW 14.0, Plt Count 424, MPV 7.1 L, Neut % (Auto) 64.0, Lymph % (Auto) 24.6, [place] % (Auto) 5.5, Eos % (Auto) 3.3, Baso % (Auto) 2.6 H, Neut # (Auto) 6.5, Lymph # (Auto) 2.5, [place] # (Auto) 0.6, Eos # (Auto) 0.3, Baso # (Auto) 0.3 H 04/16/21 21:30: Sodium 140, Potassium 3.9, Chloride 107, Carbon Dioxide 26, Anion Gap 10.9, BUN 12, Creatinine 0.70, Estimated Creat Clear 251, Estimated GFR 139, Est GFR ( Amer) 168, Glucose 96, Calcium 9.1, Total Bilirubin 0.6, AST 35, ALT 41, Alkaline Phosphatase 84, Troponin I < 0.01, C-Reactive Protein 1.9, Total Protein 7.2, Albumin 4.4, Globulin 2.8, Albumin/Globulin Ratio 1.6 04/16/21 21:30: Urine Opiates Screen Negative, Urine Methadone Screen Negative, Ur Barbituates Screen Negative, Ur Phencyclidine Scrn Negative, Ur Amphetamines Screen Positive H, U Benzodiazepines Scrn Negative, Urine Cocaine Screen Negative, U Marijuana (THC) Screen Negative Result diagrams: 04/16/21 21:30 04/16/21 21:30 Orders (Tests/Meds): ED MEDICATIONS Generic Name Dose Route Start Last Admin Trade Name Freq PRN Reason Stop Dose Admin Sodium Chloride 1,000 mls @ 999 mls/hr 04/16/21 22:00 04/16/21 22:06 Sod Chlor 0.9% 1000ml Bag IV 04/16/21 23:00 999 mls/hr .Q1H1M NATALEE Administration ORDERS Category Date Time Status C-Reactive Protein Stat Lab 04/16/21 21:30 Results Complete Blood Count Auto Diff Stat Lab 04/16/21 21:30 Results Comprehensive Metabolic Panel Stat Lab 04/16/21 21:30 Results Erythrocyte Sedimentation Rate Stat Lab 04/16/21 21:30 Results Procalcitonin Stat Lab 04/16/21 21:30 Results Troponin I Q3H Lab 04/17/21 00:45 Ordered Troponin I Q3H Lab 04/17/21 03:45 Ordered Troponin I Stat Lab 04/16/21 21:30 Results - Radiology Data #1 Image(s): Chest Image Reviewed: Yes I have reviewed radiologist's interpretation Preliminary Findings: Normal/NAD - CT Data CT Scan: Head Time Received: 22:[address] Reviewed: Yes: I have viewed the radiologist's interpretation Preliminary Findings: Normal/NAD - ECG Data Tracing #1 Normal Sinus Rhythm: Yes Ischemic changes: non-specific ST-T wave changes Medical Decision Narrative: stable exam and labs and neg ct - nonspecific etiology Dizzy HPI - General Chief Complaint: Dizziness Stated Complaint: feels like bp going up and down, dizzy weak Time Seen by Provider: 04/16/21 21:45 Mode of Arrival: Ambulatory Source of Information: Patient, Medical Record Limitations: No Limitations Description of Symptoms (Recalled from ER Triage Doc. by RN): pt c/o QUINTANA, dizziness and feel like BP is high. - History of Present Illness HPI Narrative: has occipital quintana and feeling dizzy with labile bp but
[2021-04-16 22:11] LABS: Methadone Screen,Urine Negative ng/ml (<300)
[2021-04-16 22:12] LABS: Opiate Screen,Urine Negative ng/ml (<300); Phencyclidine Screen,Urine Negative ng/ml (<25)
[2021-04-16 22:13] LABS: C-Reactive Protein 1.9 mg/L (0-4)
[2021-04-16 22:23] LABS: Troponin I < 0.01 ng/ml (0.00-0.034)
[2021-04-16 22:36] VITALS: BP 133/81; PULSE 98; RESP 20; TEMP 36.8; O2SAT 98
[2021-04-16 22:38] LABS: Procalcitonin < 0.030 ng/mL (0.0-2.0)
[2021-04-16 22:58] LABS: Erythrocyte Sedimentation Rate 8 mm/hr (0-15)
== END 2021-04-16 22:38 | disposition home or self-care (01) ==
PROVIDERS: Emergency Provider Emergency Medicine; PCP Family Medicine
DX: R42 Dizziness and giddiness (principal); I10 Essential (primary) hypertension; F41.9 Anxiety disorder, unspecified
CPT/HCPCS: 70450; 71046; 80053; 80305; 84145; 84484; 85025; 85651; 86140; 93005; 96365; 99282

== ENCOUNTER 2021-05-05 09:49 | Emergency (ER) | payer BC, SELFPAY ==
[2021-05-05 10:05] VITALS: BP 129/76; PULSE 87; RESP 19; TEMP 36.7; O2SAT 98; BMI 20.9
--- NOTE | 2021-05-05 10:46 | HMH.EDUTC ---
[facility] – [place] Disposition Clinical Impression: Upper respiratory infection, viral Disposition: Home, Self-Care Condition on Discharge: Good Instructions: DI for Viral Upper Respiratory Infection -- Adult Additional Instructions: No sign of a bacterial infection. Likely viral. Viruses can take 7-14 days to run their course. Nasal saline and bulb syringe or nose Lula to remove nasal drainage to help with nasal congestion. Hard to eat, drink, sleep with nasal congestion so important to keep this cleaned out. Monitor temp. Tylenol or Motrin as needed for pain or fever Encourage fluids, water, Gatorade, Powerade, Pedialyte if infant/toddler/child Warm salt water gargles Warm fluids Sore throat lozenges Sleep elevated Humidifier/vaporizer Follow-up immediately for new or worsening symptoms or no noticeable improvement over the next 48-72 hours. Referrals: Kirt Bell MD [Primary Care Provider] - Time of Disposition: 10:58 Medical Decision Making - Sumeet Inquiry Pt receiving controlled substance: No Vital Signs: 05/05/21 10:05 Temperature 98.0 F Temperature Source Oral Pulse Rate [Right Brachial] 87 Respiratory Rate 19 Blood Pressure [Right Arm] 129/76 Blood Pressure Mean [Right Arm] 93 Blood Pressure Source [Right Arm] Automatic Cuff Blood Pressure Position [Right Arm] Sitting 02 Sat by Pulse Oximetry 98 Oxygen Delivery Method Room Air [facility] [place] HPI - General Chief complaint: Urgent Treatment Center Stated complaint: congestion Time Seen by Provider: 05/05/21 10:47 Mode of Arrival: Ambulatory Source of Information: Patient Limitations: No Limitations Description of Symptoms (Recalled from Triage Doc. by RN): PATIENT C/O CHEST CONGESTION SINCE THIS MORNING HEENT Symptoms (Recalled from RN notes): No Resp Symptoms (Recalled from RN notes): Yes Skin Symptoms (Recalled from RN notes): No MS Symptoms (Recalled from RN notes): No Functional Status (Recalled from RN notes): WNL - History of Present Illness Provider Complaint: 26 yr old male presents for nasal congestion that started this am, denies any other symptom - Related Data Home Medications Medication Instructions Recorded Confirmed Buspirone HCl 15 mg PO BID 08/19/17 12/26/20 OXcarbazepine [Oxcarbazepine] 600 mg PO DAILY 08/19/17 12/26/20 lisinopriL [Lisinopril 40mg Tablet] 40 mg PO DAILY 08/19/17 12/26/20 dextroamphetamine-amphetamine 5 mg 5 mg PO DAILY 01/09/19 12/26/20 tablet Previous Rx's Medication Instructions Recorded Fluticasone Propionate [Flonase 1 - 2 spr NS DAILY #1 bottle 03/04/19 50mcg nasal spray 16gm] Famotidine [Pepcid] 20 mg PO BID 30 Days #60 tab 10/25/19 Sucralfate [Carafate 1gm Tab] 1 gm PO ACHS 30 Days #120 tab 10/25/19 Dicyclomine HCl [Bentyl 10mg 10 mg PO TIDP PRN #20 cap 03/27/21 capsule] Ondansetron [Zofran 4mg ODT] 4 mg PO Q8HP PRN #20 tab 03/27/21 Azithromycin [Z-Kirit 250mg Tab*] 250 mg PO UD DOSE PK #6 tab 04/10/21 Brompheniramine/Pseudoephed/Dm 5 ml PO Q6HP PRN #240 ml 04/10/21 [Bromfed Dm Cough Syrup] Ondansetron [Zofran 4mg ODT] 4 mg PO Q8HP PRN #20 tab 04/10/21 Oseltamivir Phosphate [Tamiflu 75 mg PO BID #10 cap 04/10/21 75mg Capsule] Allergies Allergy/AdvReac Type Severity Reaction Status Date / Time No Known Allergies Allergy Verified 12/26/20 17:57 - Worker's Comp Is this a Worker's Comp case?: No [facility] [place] History - Hepatitis A Screen Drug use history?: No High risk sexual behaviors?: No History of sexually transmitted infection?: No Currently employed?: No Childcare worker?: No Do you have indoor plumbing?: Yes Do you have electricity?: Yes Attestation statement:: This patient has been screened for Hepatitis A risk factors. I have reviewed the patient's past medical history: Yes Medical History: Reports:: Anxiety, Hypertension Denies:: Diabetes Mellitus Type 1, Diabetes Mellitus Type 2 Other Medical History: Reports: Other Other Surgeries: Yes: Sinus Hernandez
[2021-05-05 10:55] VITALS: BP 129/76; PULSE 87; RESP 19; TEMP 36.7; O2SAT 98
[2021-05-05 10:58] LABS: UTC Influenza A Antigen Negative (Negative); UTC Influenza B Antigen Negative (Negative)
== END 2021-05-05 11:00 | disposition home or self-care (01) ==
PROVIDERS: Emergency Provider Nurse Practitioner Family; PCP Family Medicine
DX: J06.9 Acute upper respiratory infection, unspecified (principal); I10 Essential (primary) hypertension; F41.9 Anxiety disorder, unspecified; Z79.51 Long term (current) use of inhaled steroids; Z79.899 Other long term (current) drug therapy; Z82.49 Family history of ischemic heart disease and other diseases of the circulatory system; Z83.3 Family history of diabetes mellitus
CPT/HCPCS: 87804; 99282

== ENCOUNTER 2021-05-11 15:16 | Emergency (ER) | payer BC, SELFPAY ==
[2021-05-11 15:20] VITALS: BP 121/70; PULSE 111; RESP 20; TEMP 36.7; O2SAT 97; BMI 26.9
[2021-05-11 15:38] LABS: UTC Strep Screen (Rapid) Positive (Negative)
--- NOTE | 2021-05-11 15:54 | HMH.EDUTC ---
[facility] [place]ression: Strep throat Disposition: Home, Self-Care Condition on Discharge: Good Instructions: Strep Throat, DI for Strep Throat Additional Instructions: *Monitor Temp, Over the counter Motrin or Tylenol as directed/as needed Tylenol every 4 hours and Motrin every 6 hours (as long as your family doctor has told you that you can take it) for fever or pain. and straight to ER if unable to lower temp less than 101.0 after medication given *Warm salt water gargles may help to soothe the throat *Throat Lozenges *Warm fluids like tea with honey may help to soothe the throat *Sleep elevated *Humidifier/Vaporizer *If you did not take Penicillin shot or was unable to, start taking antibiotic immediately and make sure that you take it for the FULL length of time although you should start to feel better in 24-48 hours *change toothbrush and toothpaste 24-48 hours after starting to take antibiotics so you do not reinfect yourself Monitor Temp. Tylenol and/or Ibuprofen as needed. ER if fever is no less than 101 despite alternating Tylenol and Ibuprofen * Encourage fluids, water, Gatorade, powerade, pedialyte if infant/toddler/or child *Cold fluids, popsicles and ice cream may feel good on his throat Follow up IMMEDIATELY for new or worsening symptoms or no Noticeable improvement over the next 48-72 hours. 911 for difficulty breathing or swallowing Prescriptions: Amoxicillin [Amoxicillin 875MG Tab] 875 mg PO Q12H #20 tab Transmission Status: Pending to [facility] #[id number] Referrals: Anita Strickland APRN [Primary Care Provider] - As needed Forms: Work/School Release Time of Disposition: 15:57 Medical Decision Making - Sumeet Inquiry Pt receiving controlled substance: No Sumeet was queried for this patient: No Vital Signs: 05/11/21 15:20 Temperature 98.0 F Temperature Source Oral Pulse Rate [Right Brachial] 111 H Respiratory Rate 20 Blood Pressure [Right Arm] 121/70 Blood Pressure Mean [Right Arm] 87 Blood Pressure Source [Right Arm] Automatic Cuff Blood Pressure Position [Right Arm] Sitting 02 Sat by Pulse Oximetry 97 Oxygen Delivery Method Room Air - Lab Data Lab results reviewed: Yes: I reviewed the patient's lab results. Lab Results 05/11/21 15:29: Strep Scn Rapid Clinic Positive A [facility] [place] - General Stated complaint: sotre throat Time Seen by Provider: 05/11/21 15:54 Mode of Arrival: Ambulatory Source of Information: Patient Limitations: No Limitations Description of Symptoms (Recalled from Triage Doc. by RN): PATIENT C/O SORE THROAT THAT STARTED FRIDAY NIGHT HEENT Symptoms (Recalled from RN notes): Yes Resp Symptoms (Recalled from RN notes): No Skin Symptoms (Recalled from RN notes): No MS Symptoms (Recalled from RN notes): No Functional Status (Recalled from RN notes): WNL - History of Present Illness Provider Complaint: Patient states that he started having sore throat last night states that feels like he is swallowing razor blades States that today his throat was worse so he came in to get checked out - Related Data Home Medications Medication Instructions Recorded Confirmed Buspirone HCl 15 mg PO BID 08/19/17 12/26/20 OXcarbazepine [Oxcarbazepine] 600 mg PO DAILY 08/19/17 12/26/20 lisinopriL [Lisinopril 40mg Tablet] 40 mg PO DAILY 08/19/17 12/26/20 dextroamphetamine-amphetamine 5 mg 5 mg PO DAILY 01/09/19 12/26/20 tablet Previous Rx's Medication Instructions Recorded Fluticasone Propionate [Flonase 1 - 2 spr NS DAILY #1 bottle 03/04/19 50mcg nasal spray 16gm] Famotidine [Pepcid] 20 mg PO BID 30 Days #60 tab 10/25/19 Sucralfate [Carafate 1gm Tab] 1 gm PO ACHS 30 Days #120 tab 10/25/19 Dicyclomine HCl [Bentyl 10mg 10 mg PO TIDP PRN #20 cap 03/27/21 capsule] Ondansetron [Zofran 4mg ODT] 4 mg PO Q8HP PRN #20 tab 03/27/21 Azithromycin [Z-Kirit 250mg Tab*] 250 mg PO UD DOSE PK #6 tab 04/10/21 Brompheniramine/Pseudoephed/D
[2021-05-11 16:02] VITALS: BP 121/70; PULSE 111; RESP 20; TEMP 36.7; O2SAT 97
== END 2021-05-11 16:11 | disposition home or self-care (01) ==
PROVIDERS: Emergency Provider Nurse Practitioner; PCP Nurse Practitioner Family
DX: J02.0 Streptococcal pharyngitis (principal); I10 Essential (primary) hypertension
CPT/HCPCS: 87880; 99212; G0463

== ENCOUNTER 2021-05-13 17:34 | Emergency (ER) | payer BC, SELFPAY ==
[2021-05-13 17:35] VITALS: BP 165/78; PULSE 98; RESP 18; TEMP 36.8; O2SAT 98; BMI 30.8
--- NOTE | 2021-05-13 17:48 | ECG_ITS ---
APPROVED REPORT Exam: Resting ECG HR:96 bpm ECG Measurements Heart Rate 96 AXES [place] 136 P 36 QRSd 93 QRS 45 QT 330 T 44 QTc 384 Conclusion SINUS RHYTHM NORMAL ECG UNCONFIRMED REPORT Electronically signed by : Kirt Serrano MD 05/14/2021 13:41:45
--- NOTE | 2021-05-13 18:03 | PC.NURSE ---
pt in rest room
[2021-05-13 18:09] LABS: Microscopic, Urine URINE MICROSCOPIC (MICROSCOPIC)
[2021-05-13 18:11] LABS: Appearance,Urine CLEAR (Clear); Bilirubin,Urine Negative (Negative); Blood, Urine Negative (Negative); Color,Urine YELLOW (Yellow); Glucose,Urine (UA) Negative (Negative); Ketones,Urine Negative (Negative); Leukocyte Esterase,Urine Negative (Negative); Nitrate,Urine Negative (Negative); Protein,Urine Negative (Negative); Specific Gravity, Urine >= 1.030 (1.005-1.030); Urobilinogen,Urine 0.2 EU/dl (0.2)
[2021-05-13 18:20] LABS: Bacteria,Urine Trace /lpf; RBC,Urine Occasional #/hpf (0-3); Squamous Epithelial Cell,Urine Occasional #/hpf (0-5)
--- NOTE | 2021-05-13 18:39 | HMH.EDGENADL ---
ED Disposition Clinical Impression: Flank pain, Dizziness, Lightheadedness Disposition: Home, Self-Care Condition on Discharge: Good Instructions: Vertigo Prescriptions: Ondansetron [Zofran 4mg ODT] 4 mg PO Q6H PRN 3 Days #12 tab PRN Reason: Nausea Transmission Status: Pending to [id number] Referrals: Kirt Bell MD [Primary Care Provider] - - Critical Care Critical Care Time: No Attestation: On 05/13/21, the high probability of a clinically significant, sudden or life threatening deterioration of the following system(s) required my full and direct attention, intervention and personal management. The time I documented below is in addition to time spent performing reported procedures but includes the following listed in this critical care notation. Medical Decision Making - Sumeet Inquiry Pt receiving controlled substance: No Vital Signs: 05/13/21 17:35 Temperature 98.3 F Temperature Source Oral Pulse Rate [Right Radial] 98 H Respiratory Rate 18 Blood Pressure [Right Arm] 165/78 H Blood Pressure Mean [Right Arm] 107 Blood Pressure Source [Right Arm] Automatic Cuff Blood Pressure Position [Right Arm] Sitting 02 Sat by Pulse Oximetry 98 Oxygen Delivery Method Room Air - Lab Data Lab Results 05/13/21 18:05: Urine Color Yellow, Urine Appearance Clear, Urine pH 6.0, Ur Specific [place] >= 1.030, Urine Protein Negative, Urine Glucose (UA) Negative, Urine Ketones Negative, Urine Blood Negative, Urine Nitrate Negative, Urine Bilirubin Negative, Urine Urobilinogen 0.2, Ur Leukocyte Esterase Negative, Urine RBC Occasional, Urine WBC 3-5, Ur Squamous Epith Cells Occasional, Urine Bacteria Trace 05/13/21 18:30: WBC 8.2, RBC 5.06, Hgb 14.7, Hct 44.1, MCV 87.3, MCH 29.0, MCHC 33.3, RDW 14.0, Plt Count 316, MPV 7.4, Neut % (Auto) 82.2 H, Lymph % (Auto) 7.8 L, [place] % (Auto) 6.2, Eos % (Auto) 1.5, Baso % (Auto) 2.4 H, Neut # (Auto) 6.8, Lymph # (Auto) 0.6 L, [place] # (Auto) 0.5, Eos # (Auto) 0.1, Baso # (Auto) 0.2 05/13/21 18:30: Sodium 132 L, Potassium 4.4, Chloride 98, Carbon Dioxide 28, Anion Gap 10.4, BUN 11, Creatinine 0.80, Estimated Creat Clear 219, Estimated GFR 119, Est GFR ( Amer) 144, Glucose 97, Calcium 8.8, Total Bilirubin 0.6, AST 31, ALT 36, Alkaline Phosphatase 97, Total Protein 6.7, Albumin 4.2, Globulin 2.5, Albumin/Globulin Ratio 1.7 Result diagrams: 05/13/21 18:30 05/13/21 18:30 Orders (Tests/Meds): ED MEDICATIONS Generic Name Dose Route Start Last Admin Trade Name Freq PRN Reason Stop Dose Admin Lactated Ringer's 1,000 mls @ 999 mls/hr 05/13/21 18:00 05/13/21 18:07 Lactated Ringer's 1000 Ml Bag IV 05/13/21 19:00 999 mls/hr .Q1H1M NATALEE Administration Sodium Chloride 10 ml 05/13/21 17:48 Sodium Chloride 0.9% 10ml Flush Syringe IV 06/12/21 17:47 NEEDED PRN Maintain IV Site Discontinued Medications Generic Name Dose Route Start Last Admin Trade Name Freq PRN Reason Stop Dose Admin Ketorolac Tromethamine 15 mg 05/13/21 17:57 05/13/21 18:07 Ketorolac 30mg/Ml Vial IV 05/13/21 17:58 15 mg ONCE ONE Administration Meclizine HCl 25 mg 05/13/21 17:57 05/13/21 18:08 Meclizine 25mg Tablet PO 05/13/21 17:58 25 mg ONCE ONE Administration Ondansetron HCl 4 mg 05/13/21 17:48 05/13/21 18:08 Ondansetron 4mg/2ml Vial IV 05/13/21 17:49 4 mg ONCE ONE Administration Ondansetron HCl 4 mg 05/13/21 17:57 05/13/21 18:34 Ondansetron 4mg/2ml Vial IV 05/13/21 17:58 Not Given ONCE ONE Medical Decision Narrative: DDx includes but not limited to UTI, dehydration, electrolyte abnormality, arrhythmia, vertigo. HDS, NAD, well appearing, GCS 15. Afebrile. Less likely acute meningitis or encephalitis given GCS 15, normal neck ROM, no neck pain or rigidity, neuro exam as above. Labs including cbc, cmp, ua without acute and actionable findings. Given IVF bolus 1 liter lr, zofran, po meclizine, iv toradol here in ED, and sy
[2021-05-13 18:41] LABS: Basophils # 0.2 K/mm3 (0-0.2); Basophils % 2.4 % (0.1-2.0); Chloride 98 mmol/L (98-107); Eosinophils # 0.1 K/mm3 (0.0-0.4); Eosinophils % 1.5 % (0.1-12.0); Hematocrit 44.1 % (42.0-52.0); Hemoglobin 14.7 g/dL (14.1-18.0); Lymphocytes # 0.6 K/mm3 (0.7-4.5); Lymphocytes % 7.8 % (10-50); Mean Corpuscular HGB Conc 33.3 g/dL (31.8-35.4); Mean Corpuscular Volume 87.3 fl (80-94); Mean Platelet Volume 7.4 fl (7.4-10.4); Monocytes # 0.5 K/mm3 (0.1-1.0); Monocytes % 6.2 % (1.7-9.3); Neutrophils # 6.8 K/mm3 (1.8-7.8); Neutrophils % 82.2 % (37.0-80.0); Platelet Count 316 K/mm3 (142-424); Potassium 4.4 mmoL/L (3.5-5.1); Red Blood Count 5.06 M/mm3 (4.60-6.20); Sodium 132 mmol/L (136-145); White Blood Count 8.2 K/mm3 (4.8-10.8)
[2021-05-13 18:43] LABS: Blood Urea Nitrogen 11 mg/dl (9-20); Creatinine Clearance Estimated 219 mL/min (50-200); Estimated Glomerular Filt Rate 119 ml/min (>60); GFR (African American) 144 ML/MIN (>60)
[2021-05-13 18:44] LABS: Alanine Aminotransferase 36 U/L (12-78); Albumin Level 4.2 g/dl (3.5-5.0); Albumin/Globulin Ratio 1.7 (1.1-1.8); Alkaline Phosphatase 97 U/L (38-126); Anion Gap 10.4 mEq/L (5-15); Aspartate Amino Transferase 31 U/L (17-59); Bilirubin,Total 0.6 mg/dl (0.2-1.3); Calcium 8.8 mg/dl (8.4-10.2); Carbon Dioxide 28 mmol/L (22.0-30.0); Globulin 2.5 g/dL (1.3-3.2); Glucose 97 mg/dl (74-100); Total Protein,Serum 6.7 g/dl (6.3-8.2)
[2021-05-13 20:08] VITALS: BP 132/79; PULSE 82; RESP 18; TEMP 36.8; O2SAT 98
== END 2021-05-13 20:10 | disposition home or self-care (01) ==
PROVIDERS: Emergency Provider Student in an Organized Health Care Education/Training Program; PCP Family Medicine
DX: R42 Dizziness and giddiness (principal); R53.83 Other fatigue; R11.0 Nausea; I10 Essential (primary) hypertension; F41.9 Anxiety disorder, unspecified; Z79.899 Other long term (current) drug therapy
CPT/HCPCS: 80053; 81001; 85025; 93005; 96365; 96375; 99284; J2405

== ENCOUNTER 2021-05-25 14:11 | Emergency (ER) | payer BC, SELFPAY ==
[2021-05-25 14:15] VITALS: BP 140/80; PULSE 68; RESP 18; TEMP 36.8; O2SAT 99; BMI 31.0
--- NOTE | 2021-05-25 14:31 | HMH.EDUTC ---
[facility] [place] Clinical Impression: Dizziness Disposition: Home, Self-Care Condition on Discharge: Good Instructions: DI for Vertigo Additional Instructions: Drink plenty of fluids. Follow up with your regular doctor. GO TO THE ER FOR ANY WORSENING SYMPTOMS Go to the er for any more symptoms. You need to be evaluated by your primary care physician. We will give you a list of new ones that are taking new patients. Prescriptions: Ondansetron [Zofran 4mg ODT] 4 mg PO Q8HP PRN #20 tab PRN Reason: Nausea Transmission Status: Received by [id number] Referrals: Provider,Referral, [Primary Care Provider] - Forms: Work/School Release Time of Disposition: 15:35 Medical Decision Making - Medical Records Medical records reviewed: No: I reviewed the patient's medical records. - Sumeet Inquiry Pt receiving controlled substance: No Vital Signs: 05/25/21 14:15 05/25/21 15:10 05/25/21 15:26 Temperature 98.3 F 98.3 F Temperature Source Oral Pulse Rate 68 Pulse Rate [Orthostatic Lying Right Brachial] 89 Pulse Rate [Orthostatic Sitting Right Brachial] 106 H Pulse Rate [Orthostatic Standing Right Brachial] 104 H Pulse Rate [Right Brachial] 68 Respiratory Rate 18 18 Blood Pressure 140/80 Blood Pressure [Orthostatic Lying Right Arm] 116/66 Blood Pressure [Orthostatic Sitting Right Arm] 122/59 L Blood Pressure [Orthostatic Standing Right Arm] 101/68 L Blood Pressure [Right Arm] 140/80 Blood Pressure Mean [Right Arm] 100 Blood Pressure Source [Right Arm] Automatic Cuff Blood Pressure Position [Right Arm] Sitting 02 Sat by Pulse Oximetry 99 Oxygen Delivery Method Room Air [facility] [place] HPI - General Stated complaint: lightheaded, dizziness Time Seen by Provider: 05/25/21 14:32 - History of Present Illness Provider Complaint: He states that he had a period yesterday evening while he was at his job that he got dizzy. He states that he could not identify any triggering event. He ended up having to go home after he tried to make some medication for this and accidentilly took a phenergran that made him very drowsy. Today he feels better. He denies any other complaint. - Related Data Home Medications Medication Instructions Recorded Confirmed Buspirone HCl 15 mg PO BID 08/19/17 12/26/20 OXcarbazepine [Oxcarbazepine] 600 mg PO DAILY 08/19/17 12/26/20 lisinopriL [Lisinopril 40mg Tablet] 40 mg PO DAILY 08/19/17 12/26/20 dextroamphetamine-amphetamine 5 mg 5 mg PO DAILY 01/09/19 12/26/20 tablet Previous Rx's Medication Instructions Recorded Fluticasone Propionate [Flonase 1 - 2 spr NS DAILY #1 bottle 03/04/19 50mcg nasal spray 16gm] Famotidine [Pepcid] 20 mg PO BID 30 Days #60 tab 10/25/19 Sucralfate [Carafate 1gm Tab] 1 gm PO ACHS 30 Days #120 tab 10/25/19 Dicyclomine HCl [Bentyl 10mg 10 mg PO TIDP PRN #20 cap 03/27/21 capsule] Ondansetron [Zofran 4mg ODT] 4 mg PO Q8HP PRN #20 tab 03/27/21 Azithromycin [Z-Kirit 250mg Tab*] 250 mg PO UD DOSE PK #6 tab 04/10/21 Brompheniramine/Pseudoephed/Dm 5 ml PO Q6HP PRN #240 ml 04/10/21 [Bromfed Dm Cough Syrup] Ondansetron [Zofran 4mg ODT] 4 mg PO Q8HP PRN #20 tab 04/10/21 Oseltamivir Phosphate [Tamiflu 75 mg PO BID #10 cap 04/10/21 75mg Capsule] Amoxicillin [Amoxicillin 875MG 875 mg PO Q12H #20 tab 05/11/21 Tab] Ondansetron [Zofran 4mg ODT] 4 mg PO Q6H PRN 3 Days #12 tab 05/13/21 Ondansetron [Zofran 4mg ODT] 4 mg PO Q8HP PRN #20 tab 05/25/21 Allergies Allergy/AdvReac Type Severity Reaction Status Date / Time No Known Allergies Allergy Verified 12/26/20 17:57 H History - Hepatitis A Screen Attestation statement:: This patient has been screened for Hepatitis A risk factors. I have reviewed the patient's past medical history: Yes Medical History: Reports:: Anxiety, Hypertension Denies:: Diabetes Mellitus Type 1, Diabetes Mellitus Type 2 Other Me
[2021-05-25 15:10] VITALS: BP 101/68; BP 116/66; BP 122/59; PULSE 104; PULSE 106; PULSE 89
[2021-05-25 15:26] VITALS: BP 140/80; PULSE 68; RESP 18; TEMP 36.8; O2SAT 99
== END 2021-05-25 15:41 | disposition home or self-care (01) ==
PROVIDERS: Emergency Provider Nurse Practitioner Family
DX: R42 Dizziness and giddiness (principal); I10 Essential (primary) hypertension; F41.9 Anxiety disorder, unspecified; Z79.899 Other long term (current) drug therapy
CPT/HCPCS: 99212; G0463

== ENCOUNTER 2021-06-16 10:48 | Emergency (ER) | payer BC, SELFPAY ==
[2021-06-16 11:05] VITALS: BP 130/81; PULSE 108; RESP 18; TEMP 36.8; O2SAT 99; BMI 33.3
--- NOTE | 2021-06-16 11:08 | HMH.EDUTC ---
[facility] [place]ression: Upper respiratory infection, Bronchitis Disposition: Home, Self-Care Condition on Discharge: Good Instructions: DI for Acute Bronchitis Prescriptions: Brompheniramine/Pseudoephed/Dm [Bromfed DM Cough Syrup 5mL] 5 ml PO Q4HP PRN 10 Days #240 ml PRN Reason: cough/congestion Transmission Status: Pending to [id number] predniSONE [Prednisone 20mg Tab] 20 mg PO BID 5 Days #10 tab Transmission Status: Pending to [id number] Referrals: Provider,Referral, [Primary Care Provider] - Time of Disposition: 11:41 Medical Decision Making - Sumeet Inquiry Pt receiving controlled substance: No Vital Signs: 06/16/21 11:05 Temperature 98.3 F Temperature Source Oral Pulse Rate [Right Brachial] 108 H Respiratory Rate 18 Blood Pressure [Left Arm] 130/81 Blood Pressure Mean [Left Arm] 97 Blood Pressure Source [Left Arm] Automatic Cuff Blood Pressure Position [Left Arm] Sitting 02 Sat by Pulse Oximetry 99 Oxygen Delivery Method Room Air - Lab Data Lab results reviewed: Yes: I reviewed the patient's lab results. Lab Results 06/16/21 11:33: Influenza Type A Ag Negative, Influenza Type B Ag Negative [facility] [place] - General Stated complaint: chest congestion, sore throat Time Seen by Provider: 06/16/21 11:08 - History of Present Illness Provider Complaint: Chest congestion, sore throat since last night. Denies ear pain. Denies sinus pain or pressure. No fever. No vomiting or diarrhea. No known sick contacts. Onset (ago): day(s) (1) Location: chest Relieving factors: none Exacerbating factors: none Associated symptoms: denies other symptoms, cough Treatments prior to arrival: none - Related Data Home Medications Medication Instructions Recorded Confirmed Buspirone HCl 15 mg PO BID 08/19/17 12/26/20 OXcarbazepine [Oxcarbazepine] 600 mg PO DAILY 08/19/17 12/26/20 lisinopriL [Lisinopril 40mg Tablet] 40 mg PO DAILY 08/19/17 12/26/20 dextroamphetamine-amphetamine 5 mg 5 mg PO DAILY 01/09/19 12/26/20 tablet Previous Rx's Medication Instructions Recorded Fluticasone Propionate [Flonase 1 - 2 spr NS DAILY #1 bottle 03/04/19 50mcg nasal spray 16gm] Famotidine [Pepcid] 20 mg PO BID 30 Days #60 tab 10/25/19 Sucralfate [Carafate 1gm Tab] 1 gm PO ACHS 30 Days #120 tab 10/25/19 Dicyclomine HCl [Bentyl 10mg 10 mg PO TIDP PRN #20 cap 03/27/21 capsule] Ondansetron [Zofran 4mg ODT] 4 mg PO Q8HP PRN #20 tab 03/27/21 Azithromycin [Z-Kirit 250mg Tab*] 250 mg PO UD DOSE PK #6 tab 04/10/21 Brompheniramine/Pseudoephed/Dm 5 ml PO Q6HP PRN #240 ml 04/10/21 [Bromfed Dm Cough Syrup] Ondansetron [Zofran 4mg ODT] 4 mg PO Q8HP PRN #20 tab 04/10/21 Oseltamivir Phosphate [Tamiflu 75 mg PO BID #10 cap 04/10/21 75mg Capsule] Amoxicillin [Amoxicillin 875MG 875 mg PO Q12H #20 tab 05/11/21 Tab] Ondansetron [Zofran 4mg ODT] 4 mg PO Q6H PRN 3 Days #12 tab 05/13/21 Ondansetron [Zofran 4mg ODT] 4 mg PO Q8HP PRN #20 tab 05/25/21 Brompheniramine/Pseudoephed/Dm 5 ml PO Q4HP PRN 10 Days #240 ml 06/16/21 [Bromfed DM Cough Syrup 5mL] predniSONE [Prednisone 20mg 20 mg PO BID 5 Days #10 tab 06/16/21 Tab] Allergies Allergy/AdvReac Type Severity Reaction Status Date / Time No Known Allergies Allergy Verified 12/26/20 17:57 [facility] History - Hepatitis A Screen Attestation statement:: This patient has been screened for Hepatitis A risk factors. Medical History: Reports:: Anxiety, Hypertension Denies:: Diabetes Mellitus Type 1, Diabetes Mellitus Type 2 Other Medical History: Reports: Other Other Surgeries: Yes: Sinus Surgery Amputation: No Fractures: No Comment: nasal surgery and arm pit sweat glad surgery - Social History Smoking Status: Never smoker Alcohol Intake: never Occupational Status: other - Psychiatric History Pschychiatric History:: Reports:: Anxiety Family Hx:: Hypertension, Coronary Artery Disease,
[2021-06-16 11:38] LABS: UTC Influenza A Antigen Negative (Negative)
[2021-06-16 11:39] LABS: UTC Influenza B Antigen Negative (Negative)
[2021-06-16 11:40] VITALS: BP 130/81; PULSE 108; RESP 18; TEMP 36.8; O2SAT 99
== END 2021-06-16 11:46 | disposition home or self-care (01) ==
PROVIDERS: Emergency Provider Physician Assistant
DX: J20.9 Acute bronchitis, unspecified (principal); J06.9 Acute upper respiratory infection, unspecified; I10 Essential (primary) hypertension; F41.9 Anxiety disorder, unspecified; Z79.899 Other long term (current) drug therapy
CPT/HCPCS: 87804; 99212; G0463

== ENCOUNTER 2021-08-10 17:24 | Emergency (ER) | payer BC, SELFPAY ==
[2021-08-10 17:30] VITALS: BP 150/71; PULSE 96; RESP 18; TEMP 37.4; O2SAT 98; BMI 34.4
--- NOTE | 2021-08-10 17:41 | HMH.EDUTC ---
[facility] – [place] Disposition Clinical Impression: Poison sameera Contact dermatitis Qualifiers: Contact dermatitis type: allergic Contact dermatitis trigger: non-food plants Qualified Code(s): L23.7 - Allergic contact dermatitis due to plants, except food Disposition: Home, Self-Care Condition on Discharge: Good Instructions: DI for Contact Dermatitis, DI for Poison Sameera Allergy, Methylprednisolone Injection Additional Instructions: Avoid contact with the offending substance (poison sameera). Don't start the oral steroids until tomorrow. Don't put the topical steroids (triamcinolone) on your face or your groin. Follow up with your regular doctor. GO TO THE ER FOR ANY WORSENING SYMPTOMS OR CONCERNS Prescriptions: diphenhydrAMINE HCL [Diphenhydramine HCl] 25 mg PO Q6HP PRN #30 cap PRN Reason: Itching Transmission Status: Received by [facility] methylPREDNISolone [Medrol] 4 mg PO DIRECTED 6 Days #21 packet Transmission Status: Received by [facility] Triamcinolone Acetonide 1 applicatio TP TIDP PRN 7 Days #1 gm PRN Reason: Itching Transmission Status: Received by [id number] Referrals: Provider,Referral, [Primary Care Provider] - Time of Disposition: 18:08 Medical Decision Making - Medical Records Medical records reviewed: No: I reviewed the patient's medical records. - Sumeet Inquiry Pt receiving controlled substance: No Vital Signs: 08/10/21 17:30 08/10/21 18:00 Temperature 99.3 F 99.3 F Temperature Source Oral Pulse Rate 96 H Pulse Rate [Right Brachial] 96 H Respiratory Rate 18 18 Blood Pressure 150/71 H Blood Pressure [Right Arm] 150/71 H Blood Pressure Mean [Right Arm] 97 Blood Pressure Source [Right Arm] Automatic Cuff Blood Pressure Position [Right Arm] Sitting 02 Sat by Pulse Oximetry 98 Oxygen Delivery Method Room Air Orders (Tests/Meds): ED MEDICATIONS Discontinued Medications Generic Name Dose Route Start Last Admin Trade Name Freq PRN Reason Stop Dose Admin Methylprednisolone Sodium Succinate 125 mg 08/10/21 17:51 08/10/21 18:00 Methylprednisolone Sod Succ 125mg Vial IM 08/10/21 17:52 125 mg ONCE ONE Administration [facility] [place] HPI - General Stated complaint: rash Time Seen by Provider: 08/10/21 17:41 - History of Present Illness Provider Complaint: He states that he has multipe areas of an itchy rash on his body and neck. He states that he was week eating and he cut down some poison sameera that went all over him. He denies any shortness or breath or other complaints. His symptoms began 5 days ago. - Related Data Home Medications Medication Instructions Recorded Confirmed Buspirone HCl 15 mg PO BID 08/19/17 12/26/20 OXcarbazepine [Oxcarbazepine] 600 mg PO DAILY 08/19/17 12/26/20 lisinopriL [Lisinopril 40mg Tablet] 40 mg PO DAILY 08/19/17 12/26/20 dextroamphetamine-amphetamine 5 mg 5 mg PO DAILY 01/09/19 12/26/20 tablet Previous Rx's Medication Instructions Recorded Fluticasone Propionate [Flonase 1 - 2 spr NS DAILY #1 bottle 03/04/19 50mcg nasal spray 16gm] Famotidine [Pepcid] 20 mg PO BID 30 Days #60 tab 10/25/19 Sucralfate [Carafate 1gm Tab] 1 gm PO ACHS 30 Days #120 tab 10/25/19 Dicyclomine HCl [Bentyl 10mg 10 mg PO TIDP PRN #20 cap 03/27/21 capsule] Ondansetron [Zofran 4mg ODT] 4 mg PO Q8HP PRN #20 tab 03/27/21 Azithromycin [Z-Kirit 250mg Tab*] 250 mg PO UD DOSE PK #6 tab 04/10/21 Brompheniramine/Pseudoephed/Dm 5 ml PO Q6HP PRN #240 ml 04/10/21 [Bromfed Dm Cough Syrup] Ondansetron [Zofran 4mg ODT] 4 mg PO Q8HP PRN #20 tab 04/10/21 Oseltamivir Phosphate [Tamiflu 75 mg PO BID #10 cap 04/10/21 75mg Capsule] Amoxicillin [Amoxicillin 875MG 875 mg PO Q12H #20 tab 05/11/21 Tab] Ondansetron [Zofran 4mg ODT] 4 mg PO Q6H PRN 3 Days #12 tab 05/13/21 Ondansetron [Zofran 4mg ODT] 4 mg PO Q8HP PRN #20 tab 05/25/21 Brompheniramine/Pseudoephed/Dm 5 ml PO Q4HP PRN 10 Days #240
[2021-08-10 18:00] VITALS: BP 150/71; PULSE 96; RESP 18; TEMP 37.4; O2SAT 98
== END 2021-08-10 18:11 | disposition home or self-care (01) ==
PROVIDERS: Emergency Provider Nurse Practitioner Family
DX: L23.7 Allergic contact dermatitis due to plants, except food (principal)
CPT/HCPCS: 96372; 99212; G0463

== ENCOUNTER 2021-08-13 13:45 | Emergency (ER) | payer BC, SELFPAY ==
[2021-08-13 13:56] VITALS: BP 137/86; PULSE 72; RESP 17; TEMP 36.7; O2SAT 99; BMI 30.8
--- NOTE | 2021-08-13 14:04 | HMH.EDUTC ---
[facility] – [place] Dis[place] Clinical Impression: Gastroenteritis Disposition: Home, Self-Care Condition on Discharge: Good (z) Instructions: DI for Viral Gastroenteritis -- Adult, Gastroenteritis Diet Additional Instructions: Drink plenty of fluids. Take tylenol for pain or fever. Take the medications as directed. Follow up with your regular doctor. GO TO THE ER FOR ANY WORSENING SYMPTOMS Prescriptions: Ondansetron [Zofran 4mg ODT] 4 mg PO Q8HP PRN #20 tab PRN Reason: Nausea Transmission Status: Received by [id number] Referrals: Provider,Referral, [Primary Care Provider] - Forms: Work/School Release Time of Disposition: 14:09 Medical Decision Making - Medical Records Medical records reviewed: No: I reviewed the patient's medical records. - Sumeet Inquiry Pt receiving controlled substance: No Vital Signs: 08/13/21 13:56 08/13/21 14:09 Temperature 98.1 F 98.1 F Temperature Source Oral Pulse Rate 72 Pulse Rate [Left Radial] 72 Respiratory Rate 17 17 Blood Pressure 137/86 Blood Pressure [Right Arm] 137/86 Blood Pressure Mean [Right Arm] 103 02 Sat by Pulse Oximetry 99 Medical Decision Narrative: He refused transfer to the er for further evaluation of his symptoms. I discussed the s/s of appendicitis. He is return at once for any worsening symtoms. [facility] [place] HPI - General Stated complaint: vomiting Time Seen by Provider: 08/13/21 14:06 Description of Symptoms (Recalled from Triage Doc. by RN): patient comes in today with complaints of nausea, vomitting. that began this morning HEENT Symptoms (Recalled from RN notes): No Resp Symptoms (Recalled from RN notes): No Skin Symptoms (Recalled from RN notes): No MS Symptoms (Recalled from RN notes): No Functional Status (Recalled from RN notes): wnl - History of Present Illness Provider Complaint: He states that since early this morning he has been having n/v/ and abdominal cramps. He has not had diarrhea but he states he feels like it is going to start. He denies any fever or chills. He denies abdominal pain, other than the cramping. - Related Data Home Medications Medication Instructions Recorded Confirmed Buspirone HCl 15 mg PO BID 08/19/17 12/26/20 OXcarbazepine [Oxcarbazepine] 600 mg PO DAILY 08/19/17 12/26/20 lisinopriL [Lisinopril 40mg Tablet] 40 mg PO DAILY 08/19/17 12/26/20 dextroamphetamine-amphetamine 5 mg 5 mg PO DAILY 01/09/19 12/26/20 tablet Previous Rx's Medication Instructions Recorded Fluticasone Propionate [Flonase 1 - 2 spr NS DAILY #1 bottle 03/04/19 50mcg nasal spray 16gm] Famotidine [Pepcid] 20 mg PO BID 30 Days #60 tab 10/25/19 Sucralfate [Carafate 1gm Tab] 1 gm PO ACHS 30 Days #120 tab 10/25/19 Dicyclomine HCl [Bentyl 10mg 10 mg PO TIDP PRN #20 cap 03/27/21 capsule] Ondansetron [Zofran 4mg ODT] 4 mg PO Q8HP PRN #20 tab 03/27/21 Azithromycin [Z-Kirit 250mg Tab*] 250 mg PO UD DOSE PK #6 tab 04/10/21 Brompheniramine/Pseudoephed/Dm 5 ml PO Q6HP PRN #240 ml 04/10/21 [Bromfed Dm Cough Syrup] Ondansetron [Zofran 4mg ODT] 4 mg PO Q8HP PRN #20 tab 04/10/21 Oseltamivir Phosphate [Tamiflu 75 mg PO BID #10 cap 04/10/21 75mg Capsule] Amoxicillin [Amoxicillin 875MG 875 mg PO Q12H #20 tab 05/11/21 Tab] Ondansetron [Zofran 4mg ODT] 4 mg PO Q6H PRN 3 Days #12 tab 05/13/21 Ondansetron [Zofran 4mg ODT] 4 mg PO Q8HP PRN #20 tab 05/25/21 Brompheniramine/Pseudoephed/Dm 5 ml PO Q4HP PRN 10 Days #240 ml 06/16/21 [Bromfed DM Cough Syrup 5mL] predniSONE [Prednisone 20mg 20 mg PO BID 5 Days #10 tab 06/16/21 Tab] Triamcinolone Acetonide 1 applicatio TP TIDP PRN 7 Days #1 08/10/21 gm diphenhydrAMINE HCL 25 mg PO Q6HP PRN #30 cap 08/10/21 [Diphenhydramine HCl] methylPREDNISolone [Medrol] 4 mg PO DIRECTED 6 Days #21 08/10/21 packet Ondansetron [Zofran 4mg ODT] 4 mg PO Q8HP PRN #20 tab 08/13/21 Allergies Allergy/AdvReac Type Severity Reaction
[2021-08-13 14:09] VITALS: BP 137/86; PULSE 72; RESP 17; TEMP 36.7
== END 2021-08-13 14:15 | disposition home or self-care (01) ==
PROVIDERS: Emergency Provider Nurse Practitioner Family
DX: K52.9 Noninfective gastroenteritis and colitis, unspecified (principal)
CPT/HCPCS: 99212; G0463

== ENCOUNTER 2021-09-25 13:20 | Emergency (ER) | payer SELFPAY ==
[2021-09-25 14:20] LABS: UTC Strep Screen (Rapid) Negative (Negative)
[2021-09-25 14:22] VITALS: BP 122/74; PULSE 95; RESP 18; TEMP 36.7; O2SAT 99; BMI 30.8
--- NOTE | 2021-09-25 14:24 | HMH.EDUTC ---
[facility] [place] Clinical Impression: Viral syndrome, RSV exposure Disposition: Home, Self-Care Condition on Discharge: Good Instructions: DI for Respiratory Syncytial Virus -- Adults, DI for Viral Syndrome Additional Instructions: Drink plenty of fluids. Take tylenol or ibuprofen for pain or fever. Take the medications as directed. Follow up with your regular doctor. GO TO THE ER FOR ANY WORSENING SYMPTOMS Quarantine until you know the results of your covid-19 test. Notify your school or workplace of your results and follow their instructions regarding return to work/school. Prescriptions: Ondansetron [Zofran 4mg ODT] 4 mg PO Q8HP PRN #12 tab PRN Reason: Nausea Transmission Status: Received by [facility] Benzonatate [Benzonatate 100mg cap] 100 mg PO TIDP PRN #30 cap PRN Reason: Cough Transmission Status: Received by [facility] Referrals: Provider,Referral, [Primary Care Provider] - Time of Disposition: 14:27 Medical Decision Making - Medical Records Medical records reviewed: No: I reviewed the patient's medical records. - Sumeet Inquiry Pt receiving controlled substance: No Vital Signs: 09/25/21 14:22 09/25/21 14:41 Temperature 98.1 F 98.1 F Temperature Source Oral Pulse Rate 95 H Pulse Rate [Left] 95 H Respiratory Rate 18 18 Blood Pressure 122/74 Blood Pressure [Right Arm] 122/74 Blood Pressure Mean [Right Arm] 90 02 Sat by Pulse Oximetry 99 - Lab Data Lab results reviewed: Yes: I reviewed the patient's lab results. Lab Results 09/25/21 14:19: Strep Scn Rapid Clinic Negative Orders (Tests/Meds): ORDERS Category Date Time Status Full Resp Panel w/COVID ([facility]) Routine Lab 09/25/21 14:07 Received Strep Screen Confirmation Stat Micro 09/25/21 14:19 Received [facility] [place] - General Stated complaint: congestion, sore throat Time Seen by Provider: 09/25/21 14:24 - History of Present Illness Provider Complaint: He states that for the past 2 days he has had worsening sore throat, sinus congestion, body aches and chills. His son has RSV at this time. He denies any shortness of breath, but he does have a nonproductive cough. - Related Data Home Medications Medication Instructions Recorded Confirmed Buspirone HCl 15 mg PO BID 08/19/17 12/26/20 OXcarbazepine [Oxcarbazepine] 600 mg PO DAILY 08/19/17 12/26/20 lisinopriL [Lisinopril 40mg Tablet] 40 mg PO DAILY 08/19/17 12/26/20 dextroamphetamine-amphetamine 5 mg 5 mg PO DAILY 01/09/19 12/26/20 tablet Previous Rx's Medication Instructions Recorded Fluticasone Propionate [Flonase 1 - 2 spr NS DAILY #1 bottle 03/04/19 50mcg nasal spray 16gm] Famotidine [Pepcid] 20 mg PO BID 30 Days #60 tab 10/25/19 Sucralfate [Carafate 1gm Tab] 1 gm PO ACHS 30 Days #120 tab 10/25/19 Dicyclomine HCl [Bentyl 10mg 10 mg PO TIDP PRN #20 cap 03/27/21 capsule] Ondansetron [Zofran 4mg ODT] 4 mg PO Q8HP PRN #20 tab 03/27/21 Azithromycin [Z-Kirit 250mg Tab*] 250 mg PO UD DOSE PK #6 tab 04/10/21 Brompheniramine/Pseudoephed/Dm 5 ml PO Q6HP PRN #240 ml 04/10/21 [Bromfed Dm Cough Syrup] Ondansetron [Zofran 4mg ODT] 4 mg PO Q8HP PRN #20 tab 04/10/21 Oseltamivir Phosphate [Tamiflu 75 mg PO BID #10 cap 04/10/21 75mg Capsule] Amoxicillin [Amoxicillin 875MG 875 mg PO Q12H #20 tab 05/11/21 Tab] Ondansetron [Zofran 4mg ODT] 4 mg PO Q6H PRN 3 Days #12 tab 05/13/21 Ondansetron [Zofran 4mg ODT] 4 mg PO Q8HP PRN #20 tab 05/25/21 Brompheniramine/Pseudoephed/Dm 5 ml PO Q4HP PRN 10 Days #240 ml 06/16/21 [Bromfed DM Cough Syrup 5mL] predniSONE [Prednisone 20mg 20 mg PO BID 5 Days #10 tab 06/16/21 Tab] Triamcinolone Acetonide 1 applicatio TP TIDP PRN 7 Days #1 08/10/21 gm diphenhydrAMINE HCL 25 mg PO Q6HP PRN #30 cap 08/10/21 [Diphenhydramine HCl] methylPREDNISolone [Medrol] 4 mg PO DIRECTED 6 Days #21 08/10/21 packet Ondansetron [Zofran 4mg ODT
[2021-09-25 14:41] VITALS: BP 122/74; PULSE 95; RESP 18; TEMP 36.7
[2021-09-25 14:43] LABS: Adenovirus,PCR Not Detected (NotDetected); Bordetella Pertussis Not Detected (NotDetected); Chlamydophila Pneumoniae, PCR Not Detected (NotDetected); Coronavirus 229E Not Detected (NotDetected); Coronavirus NL63 Not Detected (NotDetected); Coronavirus OC43 Not Detected (NotDetected); Coronovirus HKU1,PCR Not Detected (NotDetected); Human Metapneumovirus Not Detected (NotDetected); Influenza A, PCR Not Detected (NotDetected); Influenza AH1, 2009 Not Detected (NotDetected); Influenza AH1, PCR Not Detected (NotDetected); Influenza AH3,PCR Not Detected (NotDetected); Influenza B, PCR Not Detected (NotDetected); Mycoplasma Pneumoniae, PCR Not Detected (NotDetected); Parainfluenza 1, PCR Not Detected (NotDetected); Parainfluenza 2, PCR Not Detected (NotDetected); Parainfluenza 3, PCR Not Detected (NotDetected); Parainfluenza 4, PCR Not Detected (NotDetected); Respiratory Syncytial Virus Not Detected (NotDetected); Rhinovirus/Enterovirus Not Detected (NotDetected)
[2021-09-25 21:54] LABS: Coronavirus 19, PCR Detected (NotDetected)
== END 2021-09-25 14:41 | disposition home or self-care (01) ==
PROVIDERS: Emergency Provider Nurse Practitioner Family
DX: U07.1 COVID-19 (principal); B34.9 Viral infection, unspecified; I10 Essential (primary) hypertension; F41.9 Anxiety disorder, unspecified; Z79.51 Long term (current) use of inhaled steroids; Z79.52 Long term (current) use of systemic steroids; Z79.899 Other long term (current) drug therapy; Z82.49 Family history of ischemic heart disease and other diseases of the circulatory system; Z83.3 Family history of diabetes mellitus
CPT/HCPCS: 87581; 87632; 87798; 87880; 99213; C9803; G0463; U0003; U0005

== ENCOUNTER 2021-11-11 17:39 | Emergency (ER) | payer OTHER, SELFPAY ==
[2021-11-11 17:50] VITALS: BP 148/94; PULSE 126; RESP 20; TEMP 37.6; O2SAT 96; BMI 30.8
[2021-11-11 18:15] LABS: UTC Strep Screen (Rapid) Negative (Negative)
--- NOTE | 2021-11-11 18:34 | EXP.UTC ---
Discharge Plan Disposition Patient Disposition: Home, Self-Care Condition: Good Prescriptions Prescriptions: New azithromycin [Zithromax] 250 mg tablet 250 mg PO UD DOSE PK Qty: 6 0RF Rx Instructions: Take two (2) tablets today, then one (1) tablet days #2 thru #5 benzonatate [benzonatate] 100 mg capsule 100 mg PO TIDP PRN (Reason: Cough) Qty: 30 0RF ondansetron 4 mg Tablet,Disintegrating 4 mg PO Q8H PRN (Reason: Nausea) Qty: 12 0RF No Action lamotrigine 200 mg tablet 200 mg PO DIRECTED Label Comments: TAKE 1 TABLET BY MOUTH ONCE DAILY UPON WAKING AND ONE-HALF TABLET BY MOUTH DAILY BEFORE BED omeprazole 20 mg capsule,delayed release(DR/EC) 20 mg PO DAILY Label Comments: TAKE 1 CAPSULE BY MOUTH IN THE MORNING lisinopril 40 mg tablet 40 mg PO DAILY Label Comments: TAKE 1 TABLET BY MOUTH ONCE DAILY buspirone 15 mg tablet 15 mg PO DAILY Label Comments: TAKE 1 TABLET BY MOUTH TWICE DAILY Vraylar 3 mg capsule 3 mg PO DAILY Label Comments: TAKE 1 CAPSULE BY MOUTH ONCE DAILY Referrals Follow up/Referrals: Provider,Referral, MD [Primary Care Provider] - See instructions Activity Restrictions/Add. Instructions Additional Instructions/Restrictions: Drink plenty of fluids. Take tylenol or ibuprofen for pain or fever. Take the medications as directed. Follow up with your regular doctor. GO TO THE ER FOR ANY WORSENING SYMPTOMS Quarantine until you know the results of your covid-19 test. Notify your school or workplace of your results and follow their instructions regarding return to work/school. Clinical Impressions Clinical Impression: Acute viral syndrome, Pharyngitis Stand Alone Forms Stand Alone Forms: Work/School Release Instructions Patient Instructions: DI for Strep Throat, Preventing the Spread of Coronavirus Discharge Instructions Discharge ED Provider: Haroldo Carnes [facility] [place] General Stated complaint: sore throat,PATRICK runny nose,Body aches Mode of Arrival: Ambulatory Source of Information: Patient Limitations: No Limitations Time Seen by Provider: 11/11/21 18:35 Description of Symptoms (Recalled from Triage Doc. by RN): PATIENT C/O SORE THROAT, HEADACHE, BODY ACHES, AND RUNNY NOSE THAT STARTED YESTERDAY HEENT Symptoms (Recalled from RN notes): Yes Resp Symptoms (Recalled from RN notes): No Skin Symptoms (Recalled from RN notes): No MS Symptoms (Recalled from RN notes): No Functional Status (Recalled from RN notes): wnl History of Present Illness Provider Complaint: He c/o sore throat, fever and chills for the past 1 day. He has been exposed to strep throat and covid. Related Data Home Medications Medication Instructions Recorded Confirmed buspirone 15 mg tablet 15 mg PO DAILY . 11/11/21 11/11/21 cariprazine 3 mg capsule (Vraylar) 3 mg PO DAILY . 11/11/21 11/11/21 lamotrigine 200 mg tablet 200 mg PO DIRECTED . 11/11/21 11/11/21 lisinopril 40 mg tablet 40 mg PO DAILY Hypertension 11/11/21 11/11/21 omeprazole 20 mg capsule,delayed 20 mg PO DAILY GERD 11/11/21 11/11/21 release Previous Rx's Medication Instructions Recorded azithromycin 250 mg tablet 250 mg PO UD DOSE PK #6 tabs 11/11/21 (Zithromax) benzonatate 100 mg capsule 100 mg PO TIDP PRN Cough #30 caps 11/11/21 ondansetron 4 mg disintegrating 4 mg PO Q8H PRN Nausea #12 tabs 11/11/21 tablet Allergies Allergy/AdvReac Type Severity Reaction Status Date / Time No Known Allergies Allergy Verified 09/25/21 14:24 Worker's Comp Is this a Worker's Comp case?: No PFSH PFSH Medical History Anxiety Depression Hypertension Social History Smoking Status: Never smoker alcohol intake: never current occupational status: other Travel in the last 8 weeks: None ROS Obtained: Yes All systems reviewed & no additional
[2021-11-11 18:45] VITALS: BP 148/94; PULSE 126; RESP 20; TEMP 37.6; O2SAT 96
== END 2021-11-11 18:48 | disposition home or self-care (01) ==
PROVIDERS: Emergency Provider Nurse Practitioner Family
DX: J02.9 Acute pharyngitis, unspecified (principal); B34.9 Viral infection, unspecified
CPT/HCPCS: 87880; 99212; C9803; G0463; U0003; U0005

== ENCOUNTER 2021-12-05 19:54 | Emergency (ER) | payer OTHER, SELFPAY ==
[2021-12-05 20:05] VITALS: BP 146/90; PULSE 117; RESP 16; TEMP 36.6; O2SAT 117; BMI 33.3
[2021-12-05 20:08] VITALS: BP 141/95; RESP 16; TEMP 36.6; O2SAT 96
--- NOTE | 2021-12-05 20:18 | HMH.EDEYEP ---
Discharge Plan Disposition Patient Disposition: Home, Self-Care Chief Complaint: Eye Problems Prescriptions Prescriptions: No Action lamotrigine 200 mg tablet 200 mg PO DIRECTED Label Comments: TAKE 1 TABLET BY MOUTH ONCE DAILY UPON WAKING AND ONE-HALF TABLET BY MOUTH DAILY BEFORE BED omeprazole 20 mg capsule,delayed release(DR/EC) 20 mg PO DAILY Label Comments: TAKE 1 CAPSULE BY MOUTH IN THE MORNING lisinopril 40 mg tablet 40 mg PO DAILY Label Comments: TAKE 1 TABLET BY MOUTH ONCE DAILY buspirone 15 mg tablet 15 mg PO DAILY Label Comments: TAKE 1 TABLET BY MOUTH TWICE DAILY Vraylar 3 mg capsule 3 mg PO DAILY Label Comments: TAKE 1 CAPSULE BY MOUTH ONCE DAILY azithromycin [Zithromax] 250 mg tablet 250 mg PO UD DOSE PK Qty: 6 0RF Rx Instructions: Take two (2) tablets today, then one (1) tablet days #2 thru #5 benzonatate [benzonatate] 100 mg capsule 100 mg PO TIDP PRN (Reason: Cough) Qty: 30 0RF ondansetron 4 mg Tablet,Disintegrating 4 mg PO Q8H PRN (Reason: Nausea) Qty: 12 0RF Referrals Follow up/Referrals: Provider,Referral, MD [Primary Care Provider] - See instructions Clinical Impressions Clinical Impression: NATALEE (subconjunctival hemorrhage) Instructions Patient Instructions: DI for Subconjunctival Hemorrhage Discharge ED Provider: Edmar Black [facility] Problem HPI General Chief complaint: Eye Problems Stated complaint: left eye red,pain Time Seen by Provider: 12/05/21 20:18 Mode of Arrival: Ambulatory Source of Information: Patient and Medical Record Limitations: No Limitations Description of Symptoms (Recalled from ER Triage Doc. by RN): pt presents to er pov with complaints of left eye bleeding. Denies any headache, recent cough, sneezing or trauma. States his parents noticed the bleeding 30 minutes ago. Only known injury is that this afternoon at 1200 he hit his head on the left side at work on the door to his truck but states that the injury was very mild and he did not feel any residual pain following the incident. No n/v or loc. History of Present Illness HPI Narrative: pt with bleeding lt eye no def injury chief complaint: other (bleeding lt eye) Onset (ago): hour(s) Onset description: sudden Location: left eye Place: home Severity: mild Related Data Home Medications Medication Instructions Recorded Confirmed buspirone 15 mg tablet 15 mg PO DAILY . 11/11/21 11/11/21 cariprazine 3 mg capsule (Vraylar) 3 mg PO DAILY . 11/11/21 11/11/21 lamotrigine 200 mg tablet 200 mg PO DIRECTED . 11/11/21 11/11/21 lisinopril 40 mg tablet 40 mg PO DAILY Hypertension 11/11/21 11/11/21 omeprazole 20 mg capsule,delayed 20 mg PO DAILY GERD 11/11/21 11/11/21 release Previous Rx's Medication Instructions Recorded azithromycin 250 mg tablet 250 mg PO UD DOSE PK #6 tabs 11/11/21 (Zithromax) benzonatate 100 mg capsule 100 mg PO TIDP PRN Cough #30 caps 11/11/21 ondansetron 4 mg disintegrating 4 mg PO Q8H PRN Nausea #12 tabs 11/11/21 tablet Allergies Allergy/AdvReac Type Severity Reaction Status Date / Time No Known Allergies Allergy Verified 09/25/21 14:24 PFSH PFS Medical History Anxiety Depression Hypertension Social History Smoking Status: Current every day smoker alcohol intake: never current occupational status: other Travel in the last 8 weeks: None ROS Obtained: Yes All systems reviewed & no additional complaints except as documented Physical Exam General General appearance: alert Head Head exam: normocephalic Eye Eye exam: Present PERRL, EOMI and other (lt medial subconj hemm) ENT ENT exam: Present mucous membranes moist Respiratory Respiratory exam: Absent respiratory distress Cardiovascular Cardiovascular exam: Present regular rate Abdominal Exam Abdominal ex
[2021-12-05 20:26] VITALS: BP 140/82; PULSE 92; RESP 16; TEMP 36.6; O2SAT 96
== END 2021-12-05 20:28 | disposition home or self-care (01) ==
PROVIDERS: Emergency Provider Emergency Medicine
DX: H11.32 Conjunctival hemorrhage, left eye (principal); I10 Essential (primary) hypertension; R05.9 Cough, unspecified; F32.A Depression, unspecified; F41.9 Anxiety disorder, unspecified; F17.210 Nicotine dependence, cigarettes, uncomplicated; Z79.899 Other long term (current) drug therapy; W22.8XXA Striking against or struck by other objects, initial encounter; Y99.0 Civilian activity done for income or pay
CPT/HCPCS: 99283

== ENCOUNTER 2021-12-28 17:57 | Emergency (ER) | payer OTHER, SELFPAY ==
[2021-12-28 18:13] VITALS: BP 130/76; PULSE 110; RESP 19; TEMP 36.9; O2SAT 97; BMI 33.3
--- NOTE | 2021-12-28 18:16 | EXP.UTC ---
Discharge Plan Disposition Patient Disposition: Home, Self-Care Condition: Good Prescriptions Prescriptions: New benzonatate 100 mg capsule 100 mg PO TID PRN (Reason: cough) Qty: 30 0RF azithromycin [Zithromax Z-Kirit] 250 mg tablet See Rx Instructions .ROUTE .COMPLEX 5 Days Qty: 6 0RF Rx Instructions: For 250 mg dose pack: take 500 mg today (day 1), then 250 mg for 4 days (days 2-5) methylprednisolone [Medrol (Kirit)] 4 mg tablets,dose pack See Rx Instructions .Route .COMPLEX 6 Days Qty: 21 0RF Rx Instructions: taper pack; No Action lamotrigine 200 mg tablet 200 mg PO DIRECTED Label Comments: TAKE 1 TABLET BY MOUTH ONCE DAILY UPON WAKING AND ONE-HALF TABLET BY MOUTH DAILY BEFORE BED omeprazole 20 mg capsule,delayed release(DR/EC) 20 mg PO DAILY Label Comments: TAKE 1 CAPSULE BY MOUTH IN THE MORNING lisinopril 40 mg tablet 40 mg PO DAILY Label Comments: TAKE 1 TABLET BY MOUTH ONCE DAILY buspirone 15 mg tablet 15 mg PO DAILY Label Comments: TAKE 1 TABLET BY MOUTH TWICE DAILY Vraylar 3 mg capsule 3 mg PO DAILY Label Comments: TAKE 1 CAPSULE BY MOUTH ONCE DAILY azithromycin [Zithromax] 250 mg tablet 250 mg PO UD DOSE PK Qty: 6 0RF Rx Instructions: Take two (2) tablets today, then one (1) tablet days #2 thru #5 benzonatate [benzonatate] 100 mg capsule 100 mg PO TIDP PRN (Reason: Cough) Qty: 30 0RF ondansetron 4 mg Tablet,Disintegrating 4 mg PO Q8H PRN (Reason: Nausea) Qty: 12 0RF Activity Restrictions/Add. Instructions Additional Instructions/Restrictions: *Monitor Temp, Over the counter Motrin or Tylenol as directed/as needed Tylenol every 4 hours and Motrin every 6 hours (as long as your family doctor has told you that you can take it) for fever or pain. and straight to ER if unable to lower temp less than 101.0 after medication given *Warm salt water gargles may help to soothe the throat *Throat Lozenges? *Warm fluids like tea with honey may help to soothe the throat? *Sleep elevated *Humidifier/Vaporizer Your throat swab was sent for culture. Those results are typically sent to your primary care. Be sure to follow up in 2-3 days with your family doctor/primary care physician if no improvement so they can review those result and treat if necessary. If you don?t have a primary care doctor, I recommend you get one but in the mean time, you will have to return to a walk in clinic Follow up IMMEDIATELY for new or worsening symptoms or no Noticeable improvement over the next 48-72 hours. 911 for difficulty breathing or swallowing You were tested for today for COVID19 your test result should be back in the next 24-48 hours, you may check your results on the [facility] Clinical Impressions Clinical Impression: URI (upper respiratory infection) Stand Alone Forms Stand Alone Forms: Work/School Release Instructions Patient Instructions: DI for Sinusitis, Sore Throat, Cough Discharge ED Provider: Aida Lizarraga [facility] [place] HPI General Stated complaint: stuffy nose,chest congestion Mode of Arrival: Ambulatory Source of Information: Patient Limitations: No Limitations Time Seen by Provider: 12/28/21 18:16 Description of Symptoms (Recalled from Triage Doc. by RN): pt comes in with c/o chest congestion, stuffy nose, sore throat, body aches. symptoms ongoing for 3 days HEENT Symptoms (Recalled from RN notes): Yes Resp Symptoms (Recalled from RN notes): Yes Skin Symptoms (Recalled from RN notes): No MS Symptoms (Recalled from RN notes): No Functional Status (Recalled from RN notes): n/a History of Present Illness Provider Complaint: Patient states that he hasnt felt well for about 3 days States that he has been having sore throat, sinus congestion and pressure, chest congestion, body aches, and chills States that today he was feeling worse so he came in to get checked out Rela
[2021-12-28 18:23] LABS: UTC Influenza A Antigen Negative (Negative); UTC Strep Screen (Rapid) Negative (Negative)
[2021-12-28 18:24] LABS: UTC Influenza B Antigen Negative (Negative)
[2021-12-28 18:28] VITALS: BP 130/76; PULSE 110; RESP 19; TEMP 36.9
[2021-12-28 19:12] LABS: Adenovirus,PCR Not Detected (NotDetected); Bordetella Pertussis Not Detected (NotDetected); Chlamydophila Pneumoniae, PCR Not Detected (NotDetected); Coronavirus 19, PCR Not Detected (NotDetected); Coronavirus 229E Not Detected (NotDetected); Coronavirus OC43 Not Detected (NotDetected); Coronovirus HKU1,PCR Not Detected (NotDetected); Human Metapneumovirus Not Detected (NotDetected); Influenza A, PCR Not Detected (NotDetected); Influenza AH1, 2009 Not Detected (NotDetected); Influenza AH1, PCR Not Detected (NotDetected); Influenza AH3,PCR Not Detected (NotDetected); Influenza B, PCR Not Detected (NotDetected); Mycoplasma Pneumoniae, PCR Not Detected (NotDetected); Parainfluenza 1, PCR Not Detected (NotDetected); Parainfluenza 2, PCR Not Detected (NotDetected); Parainfluenza 3, PCR Not Detected (NotDetected); Parainfluenza 4, PCR Not Detected (NotDetected); Respiratory Syncytial Virus Not Detected (NotDetected); Rhinovirus/Enterovirus Not Detected (NotDetected)
[2021-12-28 22:37] LABS: Coronavirus NL63 Detected (NotDetected)
== END 2021-12-28 18:36 | disposition home or self-care (01) ==
PROVIDERS: Emergency Provider Nurse Practitioner
DX: J06.9 Acute upper respiratory infection, unspecified (principal)
CPT/HCPCS: 87581; 87632; 87798; 87804; 87880; 99212; C9803; G0463; U0003; U0005

== ENCOUNTER 2022-02-14 14:23 | Emergency (ER) | payer OTHER, SELFPAY ==
--- NOTE | 2022-02-14 14:28 | XR_ITS ---
FINAL REPORT CLINICAL HISTORY: FALL FINDINGS: RIGHT ANKLE 3 views of the right ankle were obtained. There is no acute fracture or dislocation. The mortise is intact. Visualized joint spaces are normally aligned. There is soft tissue swelling. IMPRESSION: No acute bony abnormality. Reviewed, Interpreted and Dictated by Alfred Harris III, MD Transcribed by Zainab Lau Authenticated and [facility]
--- NOTE | 2022-02-14 14:28 | XR_ITS ---
FINAL REPORT CLINICAL HISTORY: FALL FINDINGS: RIGHT FOOT 3 views of the right foot were obtained. There is no acute fracture or dislocation. Visualized joint spaces are normally aligned. There is soft tissue swelling. IMPRESSION: No acute bony abnormality. Reviewed, Interpreted and Dictated by Alfred Harris III, MD Transcribed by Zainab Lau Authenticated and [facility]
[2022-02-14 16:20] VITALS: BP 127/74; PULSE 78; RESP 19; TEMP 36.6; O2SAT 98; BMI 32.3
--- NOTE | 2022-02-14 16:31 | EXP.UTC ---
Discharge Plan Disposition Patient Disposition: Home, Self-Care Condition: Good Prescriptions Prescriptions: New ibuprofen [IBU] 800 mg tablet 800 mg PO Q8HP PRN (Reason: Moderate Pain) Qty: 30 0RF No Action lamotrigine 200 mg tablet 200 mg PO DIRECTED Label Comments: TAKE 1 TABLET BY MOUTH ONCE DAILY UPON WAKING AND ONE-HALF TABLET BY MOUTH DAILY BEFORE BED omeprazole 20 mg capsule,delayed release(DR/EC) 20 mg PO DAILY Label Comments: TAKE 1 CAPSULE BY MOUTH IN THE MORNING lisinopril 40 mg tablet 40 mg PO DAILY Label Comments: TAKE 1 TABLET BY MOUTH ONCE DAILY buspirone 15 mg tablet 15 mg PO DAILY Label Comments: TAKE 1 TABLET BY MOUTH TWICE DAILY Vraylar 3 mg capsule 3 mg PO DAILY Label Comments: TAKE 1 CAPSULE BY MOUTH ONCE DAILY azithromycin [Zithromax] 250 mg tablet 250 mg PO UD DOSE PK Qty: 6 0RF Rx Instructions: Take two (2) tablets today, then one (1) tablet days #2 thru #5 benzonatate [benzonatate] 100 mg capsule 100 mg PO TIDP PRN (Reason: Cough) Qty: 30 0RF ondansetron 4 mg Tablet,Disintegrating 4 mg PO Q8H PRN (Reason: Nausea) Qty: 12 0RF benzonatate 100 mg capsule 100 mg PO TID PRN (Reason: cough) Qty: 30 0RF azithromycin [Zithromax Z-Kirit] 250 mg tablet See Rx Instructions .ROUTE .COMPLEX 5 Days Qty: 6 0RF Rx Instructions: For 250 mg dose pack: take 500 mg today (day 1), then 250 mg for 4 days (days 2-5) methylprednisolone [Medrol (Kirit)] 4 mg tablets,dose pack See Rx Instructions .Route .COMPLEX 6 Days Qty: 21 0RF Rx Instructions: taper pack; Referrals Follow up/Referrals: Provider,Referral, MD [Primary Care Provider] - See instructions Luna Marin DPM [Staff Physician] - See instructions Activity Restrictions/Add. Instructions Additional Instructions/Restrictions: Rest the extremity, apply ice for 15 minutes as tolerated three or four times per day, Wear the zak wrap for compression, Elevate the extremity as tolerated while you are resting. Take ibuprofen for pain. I sent in a prescription to your pharmacy. Follow up with Dr. Marin (podiatry). Sometimes there can be fractures that don't show up well on the first set of x-rays. So, you should follow up. I put in a referral but you need to call her office and schedule an appointment. Follow up with your regular doctor. 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 He came down on his right foot and ankle. Since then he has had right foot, ankle and lower leg pain. He denies any other injury. Related Data Home Medications Medication Instructions Recorded Confirmed buspirone 15 mg tablet 15 mg PO DAILY . 11/11/21 12/28/21 cariprazine 3 mg capsule (Vraylar) 3 mg PO DAILY . 11/11/21 12/28/21 lamotrigine 200 mg tablet 200 mg PO DIRECTED . 11/11/21 12/28/21 lisinopril 40 mg tablet 40 mg PO DAILY Hypertension 11/11/21 12/28/21 omeprazole 20 mg capsule,delayed 20 mg PO DAILY GERD 11/11/21 11/11/21 release Previous Rx's Medication Instructions Recorded azithromycin 250 mg tablet 250 mg PO UD DOSE PK #6 tabs 11/11/21 (Zithromax) benzonatate 100 mg capsule 100 mg PO TIDP PRN Cough #30 caps 11/11/21 ondansetron 4 mg disintegrating 4 mg PO Q8H PRN Nausea #12 tabs 11/11/21 tablet azithromycin 250 mg tablet See Rx Instructions PO .COMPLEX 5 12/28/21 (Zithromax Z-Kirit) days #6 tabs benzonatate 100 mg capsule 100 mg PO TID PRN cough #30 caps 12/28/21 methylprednisolone 4 mg tablets in See Rx Instructions .Route 12/28/21 a
[2022-02-14 16:52] VITALS: BP 127/74; PULSE 78; RESP 19; TEMP 36.6; O2SAT 98
== END 2022-02-14 17:06 | disposition home or self-care (01) ==
PROVIDERS: Emergency Provider Nurse Practitioner Family
DX: S93.401A Sprain of unspecified ligament of right ankle, initial encounter (principal)
CPT/HCPCS: 73610; 73630; 99212; G0463

== ENCOUNTER 2022-02-18 16:17 | Emergency (ER) | payer OTHER, SELFPAY ==
--- NOTE | 2022-02-18 19:13 | EXP.UTC ---
Discharge Plan Disposition Patient Disposition: Home, Self-Care Condition: Good Prescriptions Prescriptions: No Action ibuprofen [IBU] 800 mg tablet 800 mg PO Q8HP PRN (Reason: Moderate Pain) Qty: 30 0RF lamotrigine 200 mg tablet 200 mg PO DIRECTED Label Comments: TAKE 1 TABLET BY MOUTH ONCE DAILY UPON WAKING AND ONE-HALF TABLET BY MOUTH DAILY BEFORE BED omeprazole 20 mg capsule,delayed release(DR/EC) 20 mg PO DAILY Label Comments: TAKE 1 CAPSULE BY MOUTH IN THE MORNING lisinopril 40 mg tablet 40 mg PO DAILY Label Comments: TAKE 1 TABLET BY MOUTH ONCE DAILY buspirone 15 mg tablet 15 mg PO DAILY Label Comments: TAKE 1 TABLET BY MOUTH TWICE DAILY Vraylar 3 mg capsule 3 mg PO DAILY Label Comments: TAKE 1 CAPSULE BY MOUTH ONCE DAILY azithromycin [Zithromax] 250 mg tablet 250 mg PO UD DOSE PK Qty: 6 0RF Rx Instructions: Take two (2) tablets today, then one (1) tablet days #2 thru #5 benzonatate [benzonatate] 100 mg capsule 100 mg PO TIDP PRN (Reason: Cough) Qty: 30 0RF ondansetron 4 mg Tablet,Disintegrating 4 mg PO Q8H PRN (Reason: Nausea) Qty: 12 0RF benzonatate 100 mg capsule 100 mg PO TID PRN (Reason: cough) Qty: 30 0RF azithromycin [Zithromax Z-Kirit] 250 mg tablet See Rx Instructions .ROUTE .COMPLEX 5 Days Qty: 6 0RF Rx Instructions: For 250 mg dose pack: take 500 mg today (day 1), then 250 mg for 4 days (days 2-5) methylprednisolone [Medrol (Kirit)] 4 mg tablets,dose pack See Rx Instructions .Route .COMPLEX 6 Days Qty: 21 0RF Rx Instructions: taper pack; Referrals Follow up/Referrals: Provider,Verito, [Primary Care Provider] - See instructions Bari Galvez JR, MD [Physician] - See instructions Luna Marin DPM [Staff Physician] - See instructions Activity Restrictions/Add. Instructions Additional Instructions/Restrictions: Follow up with Podiatry or Orthopedics if pain and swelling continues wear zak wrap and splint Follow up with your Family Doctor if you are still unable to return to work Return if needed Straight to ER if any life threatening symptoms Clinical Impressions Clinical Impression: Right ankle sprain Stand Alone Forms Stand Alone Forms: Work/School Release Instructions Patient Instructions: How To Perform RICE (Rest, Ice, Compress, Elevate), How to Use Crutches Discharge ED Provider: Aida Lizarraga [facility] [place] HPI General Stated complaint: WC 02/12 fell on R ankle pain Time Seen by Provider: 02/18/22 19:19 History of Present Illness Provider Complaint: Patient states that he was seen a few days ago and dx with ankle sprain states he is suppose to go back to work tomorrow and not sure if he should States that his ankle is feeling better but still having some swelling and bruising so he came in to get it looked at Related Data Home Medications Medication Instructions Recorded Confirmed buspirone 15 mg tablet 15 mg PO DAILY . 11/11/21 12/28/21 cariprazine 3 mg capsule (Vraylar) 3 mg PO DAILY . 11/11/21 12/28/21 lamotrigine 200 mg tablet 200 mg PO DIRECTED . 11/11/21 12/28/21 lisinopril 40 mg tablet 40 mg PO DAILY Hypertension 11/11/21 12/28/21 omeprazole 20 mg capsule,delayed 20 mg PO DAILY GERD 11/11/21 11/11/21 release Previous Rx's Medication Instructions Recorded azithromycin 250 mg tablet 250 mg PO UD DOSE PK #6 tabs 11/11/21 (Zithromax) benzonatate 100 mg capsule 100 mg PO TIDP PRN Cough #30 caps 11/11/21 ondansetron 4 mg disintegrating 4 mg PO Q8H PRN Nausea #12 tabs 11/11/21 tablet azithromycin 250 mg tablet See Rx Instructions PO .COMPLEX 5 12/28/21 (Zithromax Z-Kirit) days #6 tabs benzonatate 100 mg capsule 100 mg PO TID PRN cough #30 caps 12/28/21 methylprednisolone 4 mg tablets in See Rx Instructions .Route 12/28/21 a dose pack (Medrol (Kirit)) .COMPLEX 6 days #21 tabs ibuprofen 800 mg tablet (IBU) 800 mg PO Q8HP PRN Moderate Pain
[2022-02-18 19:21] VITALS: BP 152/96; PULSE 108; RESP 19; TEMP 36.6; O2SAT 99; BMI 32.1
[2022-02-18 19:27] VITALS: BP 152/96; PULSE 108; RESP 19; TEMP 36.6; O2SAT 99
== END 2022-02-18 19:32 | disposition home or self-care (01) ==
PROVIDERS: Emergency Provider Nurse Practitioner
DX: S93.401A Sprain of unspecified ligament of right ankle, initial encounter (principal)
CPT/HCPCS: 99212; G0463

== ENCOUNTER 2022-03-03 11:52 | Emergency (ER) | payer OTHER, SELFPAY ==
--- NOTE | 2022-03-03 12:04 | EXP.UTC ---
Discharge Plan Disposition Patient Disposition: Home, Self-Care Condition: Good Prescriptions Prescriptions: New azithromycin [Zithromax] 250 mg tablet 250 mg PO UD DOSE PK Qty: 6 0RF Rx Instructions: Take two (2) tablets today, then one (1) tablet days #2 thru #5 benzonatate [benzonatate] 100 mg capsule 100 mg PO TIDP PRN (Reason: Cough) Qty: 30 0RF methylprednisolone 4 mg Tablets,Dose Pack 4 mg PO DIRECTED Qty: 21 0RF No Action ibuprofen [IBU] 800 mg tablet 800 mg PO Q8HP PRN (Reason: Moderate Pain) Qty: 30 0RF lamotrigine 200 mg tablet 200 mg PO DIRECTED Label Comments: TAKE 1 TABLET BY MOUTH ONCE DAILY UPON WAKING AND ONE-HALF TABLET BY MOUTH DAILY BEFORE BED omeprazole 20 mg capsule,delayed release(DR/EC) 20 mg PO DAILY Label Comments: TAKE 1 CAPSULE BY MOUTH IN THE MORNING lisinopril 40 mg tablet 40 mg PO DAILY Label Comments: TAKE 1 TABLET BY MOUTH ONCE DAILY buspirone 15 mg tablet 15 mg PO DAILY Label Comments: TAKE 1 TABLET BY MOUTH TWICE DAILY Vraylar 3 mg capsule 3 mg PO DAILY Label Comments: TAKE 1 CAPSULE BY MOUTH ONCE DAILY ondansetron 4 mg Tablet,Disintegrating 4 mg PO Q8H PRN (Reason: Nausea) Qty: 12 0RF methylprednisolone [Medrol (Kirit)] 4 mg tablets,dose pack See Rx Instructions .Route .COMPLEX 6 Days Qty: 21 0RF Rx Instructions: taper pack; Referrals Follow up/Referrals: Provider,Referral, MD [Primary Care Provider] - See instructions Activity Restrictions/Add. Instructions Additional Instructions/Restrictions: Drink plenty of fluids. Take tylenol or ibuprofen for pain or fever. Take the medications as directed. Follow up with your regular doctor. GO TO THE ER FOR ANY WORSENING SYMPTOMS Clinical Impressions Clinical Impression: Bronchitis, Acute viral syndrome, Sinusitis Stand Alone Forms Stand Alone Forms: Work/School Release Discharge ED Provider: Haroldo Carnes [facility] [place] HPI General Stated complaint: Congestion,SOA Time Seen by Provider: 03/03/22 12:04 History of Present Illness Provider Complaint: He states that for the past 2 days he has had worsening sore throat, sinus congestion, malaise and a cough. Related Data Home Medications Medication Instructions Recorded Confirmed buspirone 15 mg tablet 15 mg PO DAILY . 11/11/21 03/01/22 cariprazine 3 mg capsule (Vraylar) 3 mg PO DAILY . 11/11/21 03/01/22 lamotrigine 200 mg tablet 200 mg PO DIRECTED . 11/11/21 03/01/22 lisinopril 40 mg tablet 40 mg PO DAILY Hypertension 11/11/21 03/01/22 omeprazole 20 mg capsule,delayed 20 mg PO DAILY GERD 11/11/21 03/01/22 release Previous Rx's Medication Instructions Recorded ondansetron 4 mg disintegrating 4 mg PO Q8H PRN Nausea #12 tabs 11/11/21 tablet methylprednisolone 4 mg tablets in See Rx Instructions .Route 12/28/21 a dose pack (Medrol (Kirit)) .COMPLEX 6 days #21 tabs ibuprofen 800 mg tablet (IBU) 800 mg PO Q8HP PRN Moderate Pain 02/14/22 #30 tabs azithromycin 250 mg tablet 250 mg PO UD DOSE PK #6 tabs 03/03/22 (Zithromax) benzonatate 100 mg capsule 100 mg PO TIDP PRN Cough #30 caps 03/03/22 methylprednisolone 4 mg tablets in 4 mg PO DIRECTED #21 tabs 03/03/22 a dose pack Allergies Allergy/AdvReac Type Severity Reaction Status Date / Time No Known Allergies Allergy Verified 03/01/22 15:08 [facility] Disclaimer: The information contained in this section may have been updated after the patient was seen, as this information can be updated by other users. Medical History Anxiety Depression Hypertension Nasal stenosis Social History Smoking Status: Current every day smoker alcohol intake: never current occupational status: other Travel in the last 8 weeks: None ROS Obtained: Yes All systems reviewed & no ad
[2022-03-03 12:10] VITALS: BP 143/82; PULSE 117; RESP 20; TEMP 37.3; O2SAT 95; BMI 32.1
[2022-03-03 13:18] VITALS: BP 143/82; PULSE 117; RESP 20; TEMP 37.3; O2SAT 95
== END 2022-03-03 13:20 | disposition home or self-care (01) ==
PROVIDERS: Emergency Provider Nurse Practitioner Family
DX: J32.9 Chronic sinusitis, unspecified (principal); J20.9 Acute bronchitis, unspecified
CPT/HCPCS: 99212; 99214; C9803; G0463; U0003; U0005

== ENCOUNTER 2024-03-29 11:26 | Emergency (ER) | payer SELFPAY ==
[2024-03-29 11:40] VITALS: BP 154/105; PULSE 90; RESP 19; TEMP 37.2; O2SAT 98; BMI 33.3
--- NOTE | 2024-03-29 11:46 | ED_ITS ---
Discharge Plan Disposition Patient Disposition: Home, Self-Care Condition: Good Prescriptions Prescriptions: New amoxicillin 500 mg capsule 500 mg PO BID 10 Days Qty: 20 0RF ondansetron 4 mg Tablet,Disintegrating 4 mg PO Q8H PRN (Reason: Nausea) Qty: 20 0RF Referrals Follow up/Referrals: Kirt Bell MD [Primary Care Provider] - See instructions Activity Restrictions/Add. Instructions Additional Instructions/Restrictions: *Monitor Temp, Over the counter Motrin or Tylenol as directed/as needed Tylenol every 4 hours and Motrin every 6 hours (as long as your family doctor has told you that you can take it) for fever or pain. and straight to ER if unable to lower temp less than 101.0 after medication given *Warm salt water gargles may help to soothe the throat *Throat Lozenges? *Warm fluids like tea with honey may help to soothe the throat? *Sleep elevated *Humidifier/Vaporizer ? Avoid fruit juices, as these do not replace minerals and can actually increase diarrhea. ? Children and adults can use sports drinks to replenish electrolytes. Younger children and infants should use products formulated for children, like oral rehydration solutions. ? Eat food in small amounts and let your stomach recover. ? Get lots of rest. You may feel tired or weak. ? No greasy or fried foods for the next 24-48 hours BRAT diet Bananas Rice Apples and Catlett ? Make sure to drink plenty of liquids ? Return if needed ? Straight to ER if any life threatening symptoms ? Zofran as prescribed Follow up IMMEDIATELY for new or worsening symptoms or no Noticeable improvement over the next 48-72 hours. 911 for difficulty breathing or swallowing Clinical Impressions Clinical Impression: Strep throat Stand Alone Forms Stand Alone Forms: Work/School Release Instructions Patient Instructions: DI for Strep Throat, DI for Vomiting -- Adult Print Language Print Language: Maori Discharge ED Provider: Aida Lizarraga [facility] – [place], [place] HPI General Stated complaint: vomiting Mode of Arrival: Ambulatory Source of Information: Patient Limitations: No Limitations Time Seen by Provider: 03/29/24 11:46 Description of Symptoms (Recalled from Triage Doc. by RN): PATIENT C/O VOMITING AND BODY ACHES THAT STARTED THIS MORNING HEENT Symptoms (Recalled from RN notes): No Resp Symptoms (Recalled from RN notes): No Skin Symptoms (Recalled from RN notes): No MS Symptoms (Recalled from RN notes): No Functional Status (Recalled from RN notes): WNL History of Present Illness Provider Complaint: Patient states that he woke up this morning with vomiting, body aches, chills and scratchy throat States not sure if his throat is scratchy from the vomiting or not States that he works at [employer] and is exposed to alot of people and was unable to go to work this morning Related Data Previous Rx's ?Medication ?Instructions ?Recorded amoxicillin 500 mg capsule 500 mg PO BID 10 days #20 caps 03/29/24 ondansetron 4 mg disintegrating 4 mg PO Q8H PRN Nausea #20 tabs 03/29/24 tablet Allergies Allergy/AdvReac Type Severity Reaction Status Date / Time No Known Allergies Allergy Verified 03/01/22 15:08 Worker's Comp Is this a Worker's Comp case?: No [facility] Disclaimer: The information contained in this section may have been updated after the patient was seen, as this information can be updated by other users. Medical History Anxiety Depression Hypertension Nasal stenosis Social History Smoking Status: Current every day smoker alcohol intake: never current occupational status: other Travel in the last 8 weeks: None Have you lived/traveled outside [place] in past 30 days?: No Contact w/someone who lives/traveled outside [place] past 30 days?: No Exposure to someone with infectious disease in past 14 days?: No Do you have a fever (greater than 100.4 F or 38 C)?: No Have you tested positive for COVID-19: No Exposed to someone with COVID-19 in past 14 days?: No Do you have a sore throat?: No Do you have a cough?: No Do you have any weakness?: No Do you have any diarrhea?: No Are you experiencing any unusual bleeding?: No Do you have any muscle aches/pain?: No Do you have any abdominal pain?: No Are you experiencing loss of taste or smell?: No ROS Obtained: Yes All systems reviewed & no additional complaints except as documented and Yes Systems reviewed as appropriate & no additional complaints except as documented Constitutional Constitutional: Reports system reviewed and no additional complaints, except as documented, Reports as per HPI, Reports body ache and Reports chills ENT Ears, Nose, Mouth, and Throat: Reports system reviewed and no additional complaints, except as documented, Reports as per HPI and Reports sore throat Cardiovascular Cardiovascular: Reports system reviewed and no additional complaints, except as documented and Reports as per HPI Respiratory Respiratory: Reports system reviewed and no additional complaints, except as documented and Reports as per HPI Gastrointestinal Gastrointestingal: Reports system reviewed and no additional complaints, except as documented, as per HPI, nausea and vomiting; Denies abdominal pain, diarrhea, hematemesis, hematochezia or melena Physical Exam General General appearance: alert and in no apparent distress ENT ENT exam: Present mucous membranes moist Expanded ENT Exam Throat exam: Present tonsillar erythema Respiratory Respiratory exam: Present normal lung sounds bilaterally; Absent respiratory distress or wheezes Cardiovascular Cardiovascular exam: Present regular rate, normal rhythm and normal heart sounds Abdominal Exam Abdominal exam: Present soft and normal bowel sounds; Absent distention or tenderness Neurological Exam Neurological exam: Present alert, oriented X3 and normal gait Medical Decision Making Medical Records Screening: Per USPSTF and CDC recommendations, given the prevalence of disease in our region, it is our hospital?s policy to screen for HIV and viral Hepatitis for all patients aged 18 and over and those with ongoing risk factors. [place] Inquiry Pt receiving controlled substance: No Sumeet was queried for this patient: No Vital Signs: 03/29/24 11:40 Temperature 98.9 F Temperature Source Oral Pulse Rate [Left Brachial] 90 Respiratory Rate 19 Blood Pressure [Left Arm] 154/105 H Blood Pressure Mean [Left Arm] 121 Blood Pressure Source [Left Arm] Automatic Cuff Blood Pressure Position [Left Arm] Sitting 02 Sat by Pulse Oximetry 98 Oxygen Delivery Method Room Air Lab Data Lab results reviewed: Yes I reviewed the patient's lab results.
[2024-03-29 12:10] VITALS: BP 154/105; PULSE 90; RESP 19; TEMP 37.2; O2SAT 98
[2024-03-29 12:11] LABS: UTC Influenza A Antigen Negative (Negative); UTC Influenza B Antigen Negative (Negative); UTC Strep Screen (Rapid) Positive (Negative)
== END 2024-03-29 12:17 | disposition home or self-care (01) ==
PROVIDERS: Emergency Provider Nurse Practitioner; PCP Family Medicine
DX: J02.0 Streptococcal pharyngitis (principal)
CPT/HCPCS: 87804; 87880; 99213; G0381